=== PATIENT | male | born 1945 | race Caucasian/White ===

== ENCOUNTER 2024-09-10 00:49 | Inpatient (IN) | payer MEDICARE, SELFPAY ==
[2024-09-09 19:12] VITALS: BP 146/84
[2024-09-09 20:10] LABS: ALT (SGPT) 16 U/L (0-50); AST (SGOT) 32 U/L (17-59); Albumin 4.8 g/dl (3.5-5.0); Alkaline Phosphatase 100 U/L (38-126); Blood Urea Nitrogen 46 mg/dl (9-20); Calcium 13.6 mg/dl (8.4-10.2); Carbon Dioxide 25 mmol/L (22-30); Chloride 97 mmol/L (98-107); Glucose 95 mg/dl (70-99); Hematocrit 35.3 % (39.0-52.0); Hemoglobin 11.3 g/dL (13.0-18.0); Mean Corpuscular Hgb 22.8 pg (27.0-31.0); Mean Corpuscular Volume 71.3 fL (80.0-94.0); Platelet Count 181 10^3/uL (130-400); Potassium 4.2 mmol/L (3.5-5.1); Red Blood Cell Count 4.95 10^6/uL (4.70-6.10); Red Cell Dist. Width 24.7 % (11.5-14.5); Sodium 142 mmol/L (135-145); Total Bilirubin 0.4 mg/dl (0.2-1.3); Total Protein 9.3 g/dl (6.3-8.2); White Blood Cell Count 9.4 10^3/uL (4.8-10.8); eGFR 20.74
[2024-09-09 20:11] LABS: Absolute Neutrophils -Man Diff 5.1 10^3/uL (1.4-6.5); Anisocytosis 1+; Band Neutrophils 0 % (0-3); Lymphocytes 19 % (20-51); Monocytes 22 % (2-9); Myelocytes 3 % (-); Normal RBC Morphology No; Platelets Checked Yes; Segmented Neutrophils 55 % (42-75)
[2024-09-09 20:12] LABS: Macrocytosis 2+; Microcytosis 1+
[2024-09-09 20:13] LABS: Basophilic Stippling Slight
[2024-09-09 20:14] LABS: Poikilocytosis Slight; Total Cells Counted 100
[2024-09-09 21:39] VITALS: BP 135/71
[2024-09-09 22:00] VITALS: BP 153/79
--- NOTE | 2024-09-09 22:15 | ED.GENMED ---
History of Present Illness
General
Chief Complaint: Weakness
Source: patient and family
Exam Limitations: none
Time Seen by Provider: 09/09/24 21:57
Nursing documentation reviewed up to this point in time: agreed with
History of Present Illness
History of Present Illness:
This is 78-year-old male that presents to the emergency department with increased weakness, decreased appetite, and limited oral hydration. According to he typically walks with a walker. She states that today he was unable to walk at all. He
has had poor balance and weakness. She states that he is not consuming enough sustenance to survive. He has been confused. Patient has a complex medical history. He is followed by the [facility] in [facility]. They live in [place] [facility] which is in the [place]. They lived here much of their lives but then retired up there. 2 years ago patient fell and had 9 compression fractures and lost 5 inches of height due to the back compression fractures. He was
seen at [facility] by Dr. Sanchez and had several surgeries. He was determined to have osteoporosis so he started taking calcium. Soon they had to stop the calcium because his calcium levels were elevated. On April 17 of this year, he
had increased back pain so he went back to [facility] in [place]. He had a CAT scan and was admitted for a kidney stone which he attributed to the supplemental calcium intake. They also found that he had cholecystitis. During the
preop screening they found that he had a liver lesion. He went to [place] after his cholecystectomy and had robotic surgery to remove the lesion on his liver. Patient has been cancer free. He is due for a follow-up appointment with his
oncologist at [place] in September. In June he continued to have back pain so they determined that he had kidney stones so he had a lithotripsy and stents were placed. He was found to be lethargic so he went back to the hospital and of the
stents and replaced them with smaller stents after repeat lithotripsy. In the last few weeks the stents were removed. Patient was found to be dehydrated when they remove the stents and he was too weak to go home so they admitted him for a few
days. states that he was discharged recently and had enough strength to ambulate with a walker. Since his discharge, and his return home he has not been eating very much. states that his balance has been off. He has been in
intermittent back pain and had several falls. She does not feel that she could manage him at home at this time.
Review of Systems
Review of Systems
Allergies reviewed?: Yes
All Other Systems: ROS reviewed and negative except as documented in HPI and ROS
Constitutional: Reports fatigue
EENT: Reports no symptoms
Respiratory: Reports no symptoms
Cardiac: Reports no symptoms
ABD/GI: Reports no symptoms
: Reports no symptoms
Musculoskeletal: Reports back pain
Skin: Reports no symptoms
Neurological: Reports dizzy and weakness
Endocrine: Reports no symptoms
Hematologic/Lymphatic: Reports no symptoms
Psychiatric: Reports no symptoms
Phy Exam
General Physical Exam
General Presentation: mild distress
General age: appears stated age
General Skin: warm and dry
General Habitus: debilitated, elderly, failure to thrive and frail
General Mental: alert
Cardiovascular Exam
Cardiovascular Exam: regular rate/rhythm
Pulmonary Exam
Pulmonary Exam: lungs clear and no respiratory distress
Gastrointestinal Exam
Gastrointestinal Exam: normal bowel sounds, non tender, soft and non distended
Neurological Exam
Neurological Exam: alert and oriented x3
Musculoskeletal Exam
Musculoskeletal Exam: back tenderness and neuro vasc intact
Skin Exam
Skin Exam: normal color and warm/dry
Psychiatric Exam
Psychiatric Exam: normal mood/affect
Course
Orders/Labs/Results
Orders:
Orders
09/09/24 19:35
CMP [Comprehensive Metabolic Panel] Urgent
Complete Blood Count/With Diff Urgent
Manual Differential Urgent
09/09/24 22:23
CT Abd/pel Without Iv Or Oral Urgent
Comment:
Reason For Exam: flanbk pain, weakness
09/09/24 22:25
CT Head W/o Iv Contrast Urgent
Comment:
Reason For Exam: weakness
09/09/24 22:30
0.9% Sodium Chloride 1000 ml [Nss] 1,000 ml IV 250 mls/hr
09/09/24 23:33
Urinalysis Reflex To Culture Urgent
Date Specimen was Collected: 09/09/24
Time Specimen was Collected: 23:31
Urine Microscopic Reflex Cult Urgent
09/10/24 00:20
Admit/Transfer Patient As Directed
Co-Sign Provider:
Level of Care: Inpatient admission
Assign to:: Medical/Surgical
Physician / Group: Celestino
Diagnosis: SAKINA, Hypercalcemia
Reason for Hospitalization: SAKINA, Hypercalcemia
Expected length of stay greater than two midnights?: Yes
ELOS- Estimated Length of Stay in days: 3
I certify the patient meets the requirements for IP care: Yes
PRN Pain Medication Management As Directed
May give lesser potent ordered pain med per pt: Yes
preference::
Protocol:: Medication orders for pain may be administered in a
manner that supports deferring to patient preference
when the pt is:
- Requesting an ordered lesser potent pain medication.
Least to most potent pain medications are defined
as: acetaminophen < NSAID < tramadol < opioids
(morphine, oxycodone, hydromorphone).
- Requesting a lesser dose of the same medication IF
ORDERED.
- Requesting a less intrusive route of administration
if both routes are prescribed by the provider (PO <
IV).
09/10/24 00:21
Code Status As Directed
Resuscitation Status: Full Code
09/10/24 01:28
0.9% Sodium Chloride 1000 ml [Nss] 1,000 ml IV 120 mls/hr
HYDROmorphone [Dilaudid] 0.5 mg IV Q4HPRN PRN
Tramadol HCl [Ultram] 50 mg PO Q6HPRN PRN
09/10/24 01:28
Consult Notification Routine
Specialty to Notify: Nephrology
Date consulting provider notified: 09/10/24
Time consulting provider notified: 07:58
Notified:: Provider
Comment: Jennifer Cruz
NEPHROLOGY CONSULT Routine
Consulting Provider: Jennifer Cruz
Was physician already notified: No
Reason for consult: SAKINA, Hypercalcemia
Activity As Directed
Activity Level: Ambulate
With Assistance
Bladder Scan As Directed
Follow Bladder Retention/Intermittent Cath Algorithm?: Yes
PRN if no void in __ hours: 6
Frequency: Per Retention Algorithm
If Bladder Scan Result >: 400
then:: Straight cath
I/O [Intake/ Output] As Directed
Frequency: Per unit guidelines
Orthostatic Vital Signs As Directed
Orthostatic VS Frequency: BID
Pneumatic Compression Sleeves As Directed
Type: Knee high
Records Request [Obtain Records] As Directed
Dates of Information to be Released: Most Recent
Type of Information Requested: Entire Record
Obtain Records from: [facility] [place]
Straight Cath As Directed
Frequency: Per Retention Algorithm
Additional Instructions: straight cath as needed per acute urinary retention algorithm for 24 hrs
Additional Instructions: for bladder scan greater than 400 mL
Vital Signs As Directed
Frequency: Per unit guidelines
Weight As Directed
Frequency: Daily
Oxygen Therapy [O2 Therapy] [RESP] Routine
Titrate/Wean O2 to maintain O2 sat greater than (%): 94
Ot Eval And Treat Routine
PT Consult [Pt Eval And Treat] Routine
Activity Level: Ambulate
With Assistance
DX Deep Vein Thrombosis Video Routine
09/10/24 Breakfast
Regular
At Your Request: Limited Participation
Levothyroxine [Synthroid] 100 mcg PO DAILY@0600
09/10/24 06:27
Intact PTH Includes Calcium Routine
Magnesium IN AM
Phosphorus IN AM
TSH Reflex To Free T4 Routine
09/10/24 08:00
Acetaminophen [Tylenol] 1,000 mg PO TID
Docusate Sodium [Colace] 100 mg PO BID
Polyethylene Glycol Powder [Miralax] 17 grams PO DAILY
09/10/24 22:00
Sennosides [Senokot] 17.2 mg PO HS
Abnormal Lab Results
09/09/24 09/09/24
19:35 23:33
Hgb 11.3 L g/dL
(13.0-18.0)
Hct 35.3 L %
(39.0-52.0)
MCV 71.3 L fL
(80.0-94.0)
MCH 22.8 L pg
(27.0-31.0)
MCHC 32.0 L g/dL
(33.0-37.0)
RDW 24.7 H %
(11.5-14.5)
Lymphocytes (Manual) 19 L %
(20-51)
Monocytes (Manual) 22 H %
(2-9)
Chloride 97 L mmol/L
(98-107)
BUN 46 H mg/dl
(9-20)
Creatinine 3.0 H mg/dL
(0.7-1.3)
Calcium 13.6 H* mg/dl
(8.4-10.2)
Total Protein 9.3 H g/dl
(6.3-8.2)
Ur Occult Blood Reflex 4+ A
(Negative)
Urine RBC >100 A /HPF
(0-2)
Urine Bacteria (Reflex) Few A
(Negative)
09/09/24 19:35
09/09/24 19:35
Vital Signs
Initial and Last Documented VS:
Initial Vital Signs
Temp Pulse Resp BP Pulse Ox
98 F 84 24 146/84 97
09/09/24 19:12 09/09/24 19:12 09/09/24 19:12 09/09/24 19:12 09/09/24 19:12
Last Documented Vital Signs
Temp Pulse Resp BP Pulse Ox
97.5 F 73 16 136/67 96
09/11/24 15:33 09/11/24 15:33 09/11/24 15:33 09/11/24 15:33 09/11/24 15:33
*Critical Care Note
Total Time (30-74mins, 75-104mins- exclusive of procedures): Not Applicable
Update Note
Update Note:
CT head
IMPRESSION:
No acute intracranial findings.
Old lacunar infarct in the left basal ganglia. Senescent changes. Vascular calcifications.
CT A/P
IMPRESSION:
Mild to moderate right and borderline left hydroureteronephrosis without evidence of a detectable obstructing ureteral calculus. This may represent residual obstructive uropathy in the setting of a recently passed stone. However, there is also a
nodular soft tissue lesion within the left posterior aspect of the bladder measuring 1.2 cm (203:37), which is suspicious for bladder malignancy, and may also be associated with obstructive uropathy. Urology consultation and cystoscopy are
recommended for further assessment for bladder neoplasm.
Renal calculi also seen.
Multilevel age indeterminate compression fractures throughout the thoracolumbar spine, most pronounced at L1 where there is severe height loss. Consider MRI to evaluate for acuity.
Cirrhosis.
Additional findings: Colonic diverticulosis. Post cholecystectomy. Cluster of nonspecific calcifications along the gallbladder fossa, possibly from scarring. DJD. Gas focus in the bladder is likely from recent instrumentation. Diffuse
osteopenia. Moderate to large hiatal hernia. Vascular calcifications including coronary artery calcifications. Aortic annular calcification. Dependent atelectasis.
ED Attending Note
-
Portions of this chart may have been created with voice recognition software.� Occasional wrong word or��sound alike� substitutions may have occurred due to the inherent limitations of voice recognition software.
Discharge Plan
Departure
Patient Disposition: Admit
Date of Disposition: 09/10/24
Time of Disposition: 00:18
Admit to: Telemetry
Presentation/result/management discussed w/ accepting MD/DO: Hospitalist
Discharge Problem:
Weakness, Fall, Hypercalcemia, Renal failure
Interventions
Interventions:
*Risk Screen - Suicide Last Done: 09/09/24 19:12
*General Assessment Last Done: 09/09/24 22:46
*Neglect/Abuse Screening Last Done: 09/09/24 19:12
ED- Fall Risk Assessment Last Done: 09/10/24 01:27
*ED COVID-19 Vaccine History Last Done: 09/09/24 22:46
*Nursing Disposition Last Done: 09/10/24 01:27
ED- Cardiac Assessment Last Done: 09/09/24 21:47
ED- Neurological Assessment Last Done: 09/09/24 21:47
ED- Pulmonary Assessment Last Done: 09/09/24 21:47
Discharge Date and Time
Discharge Date/Time: 09/10/24 01:28
[2024-09-09] MEDS: NSS 1000 IV (22:52)
[2024-09-09 23:41] LABS: Urine Albumin Trace (Neg - Trace); Urine Bilirubin Negative (Negative); Urine Character Slightly Cloudy (Clear); Urine Color Yellow; Urine Glucose Negative (Negative); Urine Ketone Negative (Negative); Urine Leukocyte Negative (Negative); Urine Nitrite Negative (Negative); Urine Occult Blood 4+ (Negative); Urine Specific Gravity 1.025 (<1.030); Urine Urobilinogen Negative (Neg - 1+)
[2024-09-10] VITALS (7 sets, daily range): BP systolic 137–166; BP diastolic 63–76; PULSE 73–75; O2SAT 94; BMI 24.5
[2024-09-10 00:01] LABS: Urine Bacteria Few (Negative); Urine Granular Cast 0-2 /LPF (0); Urine Red Blood Cell >100 /HPF (0-2); Urine Sperm Seen; Urine Squamous Cell 0-2 /LPF (Few)
--- NOTE | 2024-09-10 00:33 | HPS.HSE ---
Family Physician
-
Family Physician: * NONE
Chief Complaint
-
Back Pain, Weakness
History of Present Illness
Patient is a 78y M with PMH significant for hepatocellular carcinoma, multiple vertebral compression fractures and kidney stones who presents to ED complaining of back pain, weakness and confusion. Patient has been a generally healthy individual
for much of his life. About 2 years ago he suffered a fall with multiple compression fractures and had a somewhat difficult recovery. He was again doing fairly well until March of this year when he developed significant increase in back pain. He
was hospitalized at [facility] and found to have massive kidney stone burden bilaterally. He underwent cysto, lithotripsies and bilateral stent placements.
During that same visit he was diagnosed with cholecystitis and also underwent cholecystectomy (April 20). During that procedure he was noted to have a lesion on the liver.
He followed this up at [facility] when here underwent robotic assisted resection of that liver lesion. Pathology was consistent with hepatocellular carcinoma. Additional evaluation including bone scan, PET, etc was unremarkable and
patient did not require supplemental chemo or XRT.
On 07/30/24, patient was again hospitalized at [facility] for back pain and kidney stones. He again underwent ureteroscopy / stent placement.
He has been significantly weak / fatigued / etc since that visit.
He was rehospitalized for 'dehydration' and his stents were exchanged during that stay.
He was most recently hospitalized at [facility] from 09/02 - 09/04 for weakness and dehydration. His ureteral stents were removed during that stay. He was discharged on Bactrim DS BID x 5 days for urinary infection.
He was discharged to home where his notes that he has been extremely weak, unable to ambulate and with very poor appetite. He has been constipated. He has episodic back pain that radiates around the upper abdomen. No new / recent fall,
injury or trauma.
also reports occasional confusion / disorientation.
They presented to the ED here at this evening for 'second opinion' given his lack of improvement after multiple hospitalizations elsewhere.
Medical History
Past Medical History
Past Medical History: Reports Other
Additional Past Medical History:
Multiple Vertebral Compression Fractures
Osteoporosis
Nephrolithiasis
Hepatocellular Carcinoma
Hypothyroidism
Past Surgical History: Reports Other
Additional Past Surgical History:
Multiple Cysto / Lithotripsies / Stents
Robotic-Assisted Hepatocellular Cancer Resection
Lap [place]
Social History
Tobacco: Non-smoker
Alcohol: Occasional
Drug: None
Personal:
Living: With Family
Family History
Family History: Not pertinent
Allergies / Home Medications
Allergies reflects when Allergies were last updated in [employer].
Home Medications with original date entered in [employer]
Allergy/Medication List:
Allergies
Allergy/AdvReac Type Severity Reaction Status Date / Time
No Known Allergies Allergy Verified 09/09/24 19:17
Home Medications
acetaminophen 500 mg tablet (Tylenol Extra Strength) 500 mg PO HSPRN PRN mild pain 09/09/24
celecoxib 200 mg capsule 200 mg PO HS 09/09/24
cholecalciferol (vitamin D3) 50 mcg (2,000 unit) tablet (Vitamin D3) 50 mcg PO DAILY 09/09/24
famotidine 20 mg tablet 20 mg PO DAILY 09/09/24
ferrous sulfate 137 mg (45 mg iron) tablet,extended release 137 mg PO DAILY 09/09/24
levothyroxine 100 mcg tablet (Synthroid) 100 mcg PO DAILY 09/09/24
tramadol 50 mg tablet 50 mg PO DAILYPRN PRN moderate pain 09/09/24
Review of Systems
-
History Source: Patient and Family
A 12 point ROS was completed and negative except as noted: Yes
Constitutional: Reports Weight Loss and Fatigue; Denies Fever or Chills
EENT: Denies Sore Throat
Respiratory: Denies Cough or Trouble Breathing
Cardiac: Denies Chest Pain or Palpitations
Abdomen/GI: Reports Abdominal Pain, Nausea, Constipated and Anorexia; Denies Vomiting, Diarrhea, Bloody Stools or Black Stools
: Reports Flank Pain; Denies Dysuria or Frequency
Musculoskeletal: Denies Joint Pain or Edema
Neurological: Denies Dizzy or Headache
Psych: Denies Depression or Anxiety
Physical Exam
Vital Signs
Vital Signs
Temp Pulse Resp BP Pulse Ox
98.5 F 63 16 152/76 97
09/10/24 00:11 09/10/24 00:00 09/10/24 00:00 09/10/24 00:00 09/10/24 00:00
Physical Exam
General: Other (78y M in no acute distress - paroxysms of pain in band-like fashion around upper abdomen / back.)
HEENT: Other (Dry MM. Neck supple.)
Respiratory: Clear; No Wheezes, Rales or Rhonchi
Cardiac: S1/S2 and Regular Rhythm; No Murmur
GI: Soft, Non Tender, Non Distended and Normal Bowel Sounds
Musculoskeletal: No Clubbing, No Cyanosis, No Edema and Other (Levoscoliosis. Pain with mobility / sitting upright in bed. No posterior tenderness over the spine.)
Neuro: AO x 3
Laboratory Results
-
09/09/24 19:35
09/09/24 19:35
Laboratory Results
Total Bilirubin 0.4 mg/dl (0.2-1.3) 09/09/24 19:35
AST 32 U/L (17-59) 09/09/24 19:35
ALT 16 U/L (0-50) 09/09/24 19:35
Alkaline Phosphatase 100 U/L (38-126) 09/09/24 19:35
Impression/Plan
-
A/P: Patient is a 78y M with PMH significant for osteoporosis, nephrolithiasis and hepatocellular carcinoma who presents to ED complaining of back pain, weakness and fatigue.
SAKINA
- Admit for further evaluation and treatment.
- SCr = 3 with no recent values for comparison. Will send to [facility] for recent labs.
- Suspect combination of hypovolemia, poor intake and Bactrim use (+/- chronic hypercalcemia - see below).
- Hold further Bactrim.
- Aggressive IVF support.
- Follow urine output, labs / lytes, etc for improvement.
- Nephrology evaluation for additional recommendations.
- CT done in the ED this evening with no evidence of acute obstruction, stone, etc.
- Check SPEP given anemia, hyperproteinemia, renal insufficiency, etc.
Hypercalcemia
- Significant hypercalcemia in a gentleman with multiple vertebral fractures, constipation, abdominal discomfort, recurrent / significant nephrolithiasis and intermittent confusion.
- ? hyperparathyroidism. Check iPTH.
- Note that patient was previously on PTH analog for treatment of his osteoporosis - stopped in June.
- Follow-up results. Hold calcium supplementation.
- Aggressive IVFs as noted above. Consider pamidronate or similar if no significant improvement in calcium levels.
- Consider 24 hour urine calcium testing after volume replacement.
Back Pain
Multiple Vertebral Fractures
- New / worsening back pain in radicular fashion.
- ? new or progressed compression fractures.
- CT done in the ED this evening shows significant loss of height at T12 especially.
- Efforts at pain control. PT / OT evaluations.
- If pain uncontrolled - consider MRI +/- IR evaluation for vertebroplasty, etc.
Nephrolithiasis
- Multiple recent episodes with significant described stone burden.
- Stone issues started after beginning PTH analog for osteoporosis / vertebral compression fractures.
- Now off of this medication.
- No new stones seen on CT scan.
- ? bladder mass lesion - which seems somewhat unlikely given multiple recent instrumentations / cystos.
- Follow-up with his Urologist at [facility] after discharge as already planned.
Hepatocellular Carcinoma
- s/p resection. No adjuvant therapies.
- Follow-up at [facility] as planned.
Hypothyroidism
- Stable. Continue current T4 supplementation.
- Update TFTs.
DVT Prophylaxis: SCDs
Code Status: Full
[2024-09-10] MEDS: NSS 1000 IV ×3 (01:54→17:34)
[2024-09-10] MEDS: NSS IV ×3 (02:08→15:01)
--- NOTE | 2024-09-10 02:49 | PTCARENOTE ---
Patient arrived to unit from [facility] via bed. Patient AAOx3, forgetful, able to make needs known. Oriented to unit. 2 IVF orders on JAN. TT FABRICE Almeida for clarification. NSS 150 mL/hr running. Encouraged to use call flanagan for assistance. Bed
alarm placed. Plan of care ongoing.
[2024-09-10] MEDS: SYNTHROID 100 MCG PO (05:28)
[2024-09-10 07:27] LABS: ALT (SGPT) 13 U/L (0-50); AST (SGOT) 25 U/L (17-59); Albumin 3.6 g/dl (3.5-5.0); Alkaline Phosphatase 72 U/L (38-126); Blood Urea Nitrogen 43 mg/dl (9-20); Calcium 12.3 mg/dl (8.4-10.2); Carbon Dioxide 23 mmol/L (22-30); Chloride 103 mmol/L (98-107); Direct Bilirubin 0.1 mg/dl (0.0-0.4); Estimated Creatinine Clearance 19 ml/min; Glucose 89 mg/dl (70-99); Magnesium 2.4 mg/dl (1.6-2.3); Phosphorus 3.8 mg/dl (2.5-4.5); Sodium 142 mmol/L (135-145); Total Bilirubin 0.3 mg/dl (0.2-1.3); Total Protein 7.3 g/dl (6.3-8.2); eGFR 24.63
[2024-09-10] MEDS: MIRALAX 17 GRAMS PO (07:48)
[2024-09-10] MEDS: COLACE 100 MG PO ×2 (07:48→22:04)
[2024-09-10] MEDS: TYLENOL 1000 MG PO ×3 (07:48→22:04)
[2024-09-10 08:06] LABS: Hematocrit 26.4 % (39.0-52.0); Hemoglobin 8.6 g/dL (13.0-18.0); Mean Corp Hgb Conc. 32.6 g/dL (33.0-37.0); Mean Corpuscular Hgb 23.1 pg (27.0-31.0); Mean Corpuscular Volume 70.8 fL (80.0-94.0); Platelet Count 149 10^3/uL (130-400); Red Blood Cell Count 3.73 10^6/uL (4.70-6.10); Red Cell Dist. Width 23.7 % (11.5-14.5); White Blood Cell Count 6.5 10^3/uL (4.8-10.8)
[2024-09-10 09:50] LABS: Intact PTH 9.8 pg/ml (13.6-85.8)
[2024-09-10] MEDS: DILAUDID 0.5 MG IV (11:52)
--- NOTE | 2024-09-10 12:01 | W.PN.HOSP.TC ---
Today's Communication/Plan
-
Monitor vital signs see plan
Monitor urine output
Urine studies
Nephrology evaluation
Monitor renal function
Requested records from [facility] to compare creatinine
DC Bactrim
Monitor hemoglobin
Nonbillable note
Assessment / Plan
Assessment / Plan
General: No acute distress
HEENT: Other (Dry MM. Neck supple.)
Respiratory: Clear; No Wheezes, Rales or Rhonchi
Cardiac: S1/S2 and Regular Rhythm; No Murmur
GI: Soft, Non Tender, Non Distended and Normal Bowel Sounds
Musculoskeletal: No Clubbing, No Cyanosis, No Edema and Other (Levoscoliosis. Pain with mobility / sitting upright in bed. No posterior tenderness over the spine.)
Neuro: AO x 3
SAKINA or SAKINA on CKD
per spouse no hx of CKD
- SCr = 3 with no recent values for comparison. Will send to [facility] for recent labs. Cr 2.6 today
- Suspect combination of hypovolemia, poor intake and Bactrim use (+/- chronic hypercalcemia - see below).
- Hold further Bactrim.
- Aggressive IVF support.
- Follow urine output, check urine lytes,eos
- Nephrology evaluation for additional recommendations.
- CT done in the ED this evening with no evidence of acute obstruction, stone, etc. per urology, no need for inpatient evaluation and recommended patient to follow-up outpatient
- Check SPEP given anemia, hyperproteinemia, renal insufficiency, etc.
Hypercalcemia
- Significant hypercalcemia in a gentleman with multiple vertebral fractures, constipation, abdominal discomfort, recurrent / significant nephrolithiasis and intermittent confusion.
- ? hyperparathyroidism. Check iPTH.
- Note that patient was previously on PTH analog for treatment of his osteoporosis - stopped in June.
- Follow-up results. Hold calcium supplementation.
- Aggressive IVFs as noted above. Consider pamidronate or similar if no significant improvement in calcium levels.
Back Pain
Multiple Vertebral Fractures
- New / worsening back pain in radicular fashion.
- ? new or progressed compression fractures.
- CT done in the ED this evening shows significant loss of height at T12 especially.
- Efforts at pain control. PT / OT evaluations.
- If pain uncontrolled - consider MRI +/- IR evaluation for vertebroplasty, etc.
Nephrolithiasis
- Multiple recent episodes with significant described stone burden.
- Stone issues started after beginning PTH analog for osteoporosis / vertebral compression fractures.
- Now off of this medication.
- No new stones seen on CT scan.
- ? bladder mass lesion - which seems somewhat unlikely given multiple recent instrumentations / cystos.
- Follow-up with his Urologist at [facility] after discharge as already planned.
Anemia, suspect anemia of chronic disease
Check iron panel, B12, folate
Continue to monitor
Some low hemoglobin is also secondary to hemodilution
Constipation
laxatives
enema
Hepatocellular Carcinoma
- s/p resection. No adjuvant therapies.
- Follow-up at [facility] as planned.
Hypothyroidism
- Stable. Continue current T4 supplementation.
- Update TFTs.
DVT Prophylaxis: SCDs
Code Status: Full
PT/OT
Anticipated Discharge: > 48 hours
Subjective/Interval History
-
Date of Service: September 10, 2024
denies pain
Objective Data
-
Labs:
Laboratory Results
09/10/24 09/10/24 09/10/24
06:27 06:27 07:28
WBC Cancelled 6.5
Hgb Cancelled 8.6 L D
Hct Cancelled 26.4 L
Plt Count Cancelled 149
Sodium 142
Potassium 4.0
Chloride 103
Carbon Dioxide 23
BUN 43 H
Creatinine 2.6 H
Glucose 89
Calcium TNP 12.3 H
Total Bilirubin 0.3
AST 25
ALT 13
Alkaline Phosphatase 72
Vital Signs:
Vital Signs
Temp Pulse Resp BP Pulse Ox
98.0 F 58 18 154/63 95
09/10/24 07:15 09/10/24 07:15 09/10/24 07:15 09/10/24 07:15 09/10/24 07:15
I&O
09/09/24 09/10/24 09/11/24
06:59 06:59 06:59
Output Total 300 / 300
Balance -300 / -300
--- NOTE | 2024-09-10 16:10 | W.CON.NEPH ---
Consultation
-
Date/Time Consultation Requested: 09/10/2024 7:00 AM
Date/Time Consultation Performed: 09/10/2024 4:00 PM
Requesting Provider: Dr. Garcia
Performing Provider: Dr. Barnes
Reason for Consultation: Acute kidney injury
Medical History
-
Chief Complaint: Acute kidney injury
History of Present Illness:
The patient is a 78-year-old male with PMH significant for hepatocellular carcinoma (status post robotic assisted hepatocellular cancer resection), multiple vertebral compression fractures and kidney stones who presents to ED complaining of back
pain, weakness and confusion. About 2 years ago he suffered a fall with multiple compression fractures and had a somewhat difficult recovery. He was again doing fairly well until March of this year when he developed significant increase in back
pain. He was hospitalized at [facility] and found to have massive kidney stone burden bilaterally. He underwent cysto, lithotripsies and bilateral stent placements.
During that same visit he was diagnosed with cholecystitis and also underwent cholecystectomy (April 20). During that procedure he was noted to have a lesion on the liver.
He followed this up at [facility] when here underwent robotic assisted resection of that liver lesion. Pathology was consistent with hepatocellular carcinoma. Additional evaluation including bone scan, PET, etc was unremarkable and
patient did not require supplemental chemo or XRT.
On 07/30/24, patient was again hospitalized at [facility] for back pain and kidney stones. He again underwent ureteroscopy / stent placement.
He has been significantly weak / fatigued / etc since that visit.
He was rehospitalized for 'dehydration' and his stents were exchanged during that stay.
He was most recently hospitalized at [facility] from 09/02 - 09/04 for weakness and dehydration. His ureteral stents were removed during that stay. He was discharged on Bactrim DS BID x 5 days for urinary infection.
He was discharged to home where his notes that he has been extremely weak, unable to ambulate and with very poor appetite. He has been constipated. He has episodic back pain that radiates around the upper abdomen. No new / recent fall,
injury or trauma.
also reports occasional confusion / disorientation.
They presented to the ED here at this evening for 'second opinion' given his lack of improvement after multiple hospitalizations elsewhere. On presentation his creatinine was 3 and nephrology was consulted.
Past Medical History
Multiple Vertebral Compression Fractures
Osteoporosis
Nephrolithiasis
Hepatocellular Carcinoma
Hypothyroidism
Social History
Tobacco: Non-Smoker
Alcohol: Occasional
Drug: None
Family History
no CKD
Family History: Not Pertinent
Allergies / Home Medications
Allergy/AdvReac Type Severity Reaction Status Date / Time
No Known Allergies Allergy Verified 09/09/24 19:17
�Medication �Instructions �Recorded �Confirmed �Type
acetaminophen 500 mg tablet 500 mg PO HSPRN PRN mild pain 09/09/24 09/09/24 History
(Tylenol Extra Strength)
celecoxib 200 mg capsule 200 mg PO HS Pain 09/09/24 09/09/24 History
cholecalciferol (vitamin D3) 50 50 mcg PO DAILY Supplement 09/09/24 09/09/24 History
mcg (2,000 unit) tablet (Vitamin
D3)
famotidine 20 mg tablet 20 mg PO DAILY Gastrointestinal 09/09/24 09/09/24 History
Issue
ferrous sulfate 137 mg (45 mg 137 mg PO DAILY Supplement 09/09/24 09/09/24 History
iron) tablet,extended release
levothyroxine 100 mcg tablet 100 mcg PO DAILY Thyroid 09/09/24 09/09/24 History
(Synthroid)
tramadol 50 mg tablet 50 mg PO DAILYPRN PRN moderate pain 09/09/24 09/09/24 History
Review of Systems
-
History Source: Patient
All other systems: Negative unless noted
Abdomen/GI: Abdominal Pain
Physical Exam
Vital Signs
Vital Signs
Temp Pulse Resp BP Pulse Ox
97.8 F 57 16 137/65 97
09/10/24 15:03 09/10/24 15:03 09/10/24 15:03 09/10/24 15:03 09/10/24 15:03
Lab Results
09/10/24 07:28
09/10/24 06:27
WBC 6.5 10^3/uL (4.8-10.8) 09/10/24 07:28
RBC 3.73 10^6/uL (4.70-6.10) L 09/10/24 07:28
Hgb 8.6 g/dL (13.0-18.0) L D 09/10/24 07:28
Hct 26.4 % (39.0-52.0) L 09/10/24 07:28
Plt Count 149 10^3/uL (130-400) 09/10/24 07:28
Sodium 142 mmol/L (135-145) 09/10/24 06:27
Potassium 4.0 mmol/L (3.5-5.1) 09/10/24 06:27
Chloride 103 mmol/L (98-107) 09/10/24 06:27
Carbon Dioxide 23 mmol/L (22-30) 09/10/24 06:27
BUN 43 mg/dl (9-20) H 09/10/24 06:27
Creatinine 2.6 mg/dL (0.7-1.3) H 09/10/24 06:27
eGFR 24.63 09/10/24 06:27
Glucose 89 mg/dl (70-99) 09/10/24 06:27
Calcium 12.3 mg/dl (8.4-10.2) H 09/10/24 06:27
Calcium TNP 09/10/24 06:27
Phosphorus 3.8 mg/dl (2.5-4.5) 09/10/24 06:27
Albumin 3.6 g/dl (3.5-5.0) 09/10/24 06:27
Physical Exam
General: AOx3, Nontoxic , NAD
HEENT: PERRL, EOMI, Anicteric, Conjunctivae Clear, Ear/Nose Intact, Hearing Normal, Oropharynx Clear/Moist, Dentition Intact, Facial Symmetry, Neck Supple, Neck: Trachea Midline, No JVD and No Thyromegaly, no Bruits
Respiratory: Clear to auscultation bilaterally with normal lung exersion
Cardiac: S1/S2 and Regular Rate/Rhythm
Breast: Deferred by me
Abdomen: Soft, Nontender, Nondistended, Normal Bowel Sounds and No Hepatosplenomegaly
Rectal: Deferred by Provider
Genito-urinary: No Costovertebral Tenderness
Extremities: No Clubbing, No Cyanosis and trace Edema
Skin: No Rash or open lesions
Neuro: Nonfocal/Grossly Intact, CN II-XII (Intact) and Strength (Musculoskeletal exam 5 out of 5 both upper and lower extremities)
Hematologic/Lymphatic: No Cervical Lymphadenopathy, No Submandibular Lymphadenopathy and No Supraclavicular Lymphadenopathy
Psych: Mood/afflect pleasant, Insight/judgement good and Appropriate
Vascular: plus 2 pedal and radial pulses
Data Reviewed
-
CT Scan: Report Reviewed by me (CT of abdomen and pelvis reviewed report: Mild right collecting system and right ureteral dilatation nonobstructing bilateral renal calculi small left-sided urinary bladder mass with associated left ureteral
dilatation and minimal left renal collection dilitation)
Labs: Labs Reviewed by me (Urinalysis 4+ blood trace, reviewed BMP CBC)
Old Records: Reviewed (Creatinine level from 06/26/2008 was 0.9 reviewed in old EMR )
Assessment/Plan
-
Impression:
SAKINA
Bilateral nephrolithiasis
History of hypothyroidism
Multiple vertebral compression fracture
Hypercalcemia
Anemia
History of hepatocellular carcinoma status post resection
Plan:
SAKINA:
-Unknown baseline and we will have to obtain records from [facility] to review for baseline labs and other history
-Hold NSAIDs
-suspect due to underlying obstruction vs recent treatment of UTI with bactrim, versus prerenal induced injury from hypercalcemia
-Microhematuria likely due to large stone burden and possible bladder mass
-Follow accurate I's and O's
Hypercalcemia:
- PTH- RP , SPEP ,HUNTER
-PTH appropriately suppressed at 9.8
-Maintain current IV fluids
-Will consider pamidronate if calcium levels do not decrease appreciable
[2024-09-10 18:52] LABS: Ferritin 88.4 ng/ml (17.9-464.0)
[2024-09-10 19:23] LABS: Folate 4.2 ng/ml (2.76-20); Vitamin B12 899 pg/ml (239-931)
[2024-09-10 19:29] LABS: Iron 39 ug/dl (49-181)
[2024-09-10 19:38] LABS: Percent Saturation 16 % (20-50); Total Iron Binding Capacity 240 ug/dl (261-462)
[2024-09-10 20:01] LABS: Urine Sodium 92 mmol/L (30-90)
[2024-09-10 20:39] LABS: Body Fluid for Eosinophils No Eosinophils seen
[2024-09-10] MEDS: SENOKOT 17.2 MG PO (22:05)
[2024-09-11] MEDS: NSS 1000 IV ×3 (03:22→15:16)
[2024-09-11 06:00] VITALS: BMI 24.4
[2024-09-11] MEDS: SYNTHROID 100 MCG PO (06:33)
[2024-09-11 07:55] VITALS: BP 175/76
[2024-09-11 08:39] LABS: Hematocrit 28.5 % (39.0-52.0); Hemoglobin 9.1 g/dL (13.0-18.0); Mean Corp Hgb Conc. 31.9 g/dL (33.0-37.0); Mean Corpuscular Hgb 22.9 pg (27.0-31.0); Mean Corpuscular Volume 71.8 fL (80.0-94.0); Platelet Count 144 10^3/uL (130-400); Red Blood Cell Count 3.97 10^6/uL (4.70-6.10); Red Cell Dist. Width 23.7 % (11.5-14.5); White Blood Cell Count 7.3 10^3/uL (4.8-10.8)
[2024-09-11 09:02] LABS: ALT (SGPT) 12 U/L (0-50); AST (SGOT) 23 U/L (17-59); Albumin 3.4 g/dl (3.5-5.0); Alkaline Phosphatase 84 U/L (38-126); Blood Urea Nitrogen 33 mg/dl (9-20); Carbon Dioxide 21 mmol/L (22-30); Chloride 108 mmol/L (98-107); Estimated Creatinine Clearance 22 ml/min; Glucose 82 mg/dl (70-99); Potassium 3.8 mmol/L (3.5-5.1); Sodium 142 mmol/L (135-145); Total Bilirubin 0.4 mg/dl (0.2-1.3); Total Protein 7.2 g/dl (6.3-8.2); eGFR 28.53
[2024-09-11 09:08] LABS: Absolute Neutrophils -Man Diff 3.4 10^3/uL (1.4-6.5); Anisocytosis 1+; Band Neutrophils 0 % (0-3); Lymphocytes 27 % (20-51); Monocytes 26 % (2-9); Normal RBC Morphology No; Platelets Checked Yes; Segmented Neutrophils 47 % (42-75)
[2024-09-11 09:09] LABS: Hypochromasia 1+; Polychromasia 1+; Total Cells Counted 100
[2024-09-11] MEDS: TYLENOL 1000 MG PO ×3 (09:14→20:19)
[2024-09-11] MEDS: MIRALAX 17 GRAMS PO (09:14)
[2024-09-11] MEDS: PEPCID 10 MG PO (09:15)
[2024-09-11] MEDS: COLACE 100 MG PO ×2 (09:15→20:20)
[2024-09-11] MEDS: APRESOLINE 5 MG IV (09:19)
[2024-09-11 11:25] VITALS: BP 136/77
--- NOTE | 2024-09-11 12:17 | W.PN.HOSP.TC ---
Today's Communication/Plan
-
Monitor vital signs see plan
PT/OT
Continue to monitor renal function, slowly improving, creatinine 2.3
Monitor calcium
Assessment / Plan
Assessment / Plan
General: No acute distress
HEENT: Other (Dry MM. Neck supple.)
Respiratory: Clear; No Wheezes, Rales or Rhonchi
Cardiac: S1/S2 and Regular Rhythm; No Murmur
GI: Soft, Non Tender, Non Distended and Normal Bowel Sounds
Musculoskeletal: No Clubbing, No Cyanosis, No Edema and Other (Levoscoliosis. Pain with mobility / sitting upright in bed. No posterior tenderness over the spine.)
Neuro: AO x 3
SAKINA or SAKINA on CKD
per spouse no hx of CKD
- SCr = 3 with no recent values for comparison. records requested [facility] for recent labs. Cr 2.3 today
- Suspect combination of hypovolemia, poor intake and Bactrim use (+/- chronic hypercalcemia - see below).
- Hold further Bactrim.
- Aggressive IVF support.
- Follow urine output
- Nephrology following
SPEP ordered on admission, pending
Hypercalcemia
- Significant hypercalcemia in a gentleman with multiple vertebral fractures, constipation, abdominal discomfort, recurrent / significant nephrolithiasis and intermittent confusion.
- ? hyperparathyroidism.
- Note that patient was previously on PTH analog for treatment of his osteoporosis - stopped in June.
- Follow-up results. Hold calcium supplementation.
- Aggressive IVFs as noted above. Consider pamidronate or similar if no significant improvement in calcium levels.
pthrp pending
Back Pain
Multiple Vertebral Fractures
- New / worsening back pain in radicular fashion.
- ? new or progressed compression fractures.
- CT done in the ED this evening shows significant loss of height at T12 especially.
- Efforts at pain control. PT / OT evaluations.
- If pain uncontrolled - consider MRI +/- IR evaluation for vertebroplasty, etc.
Nephrolithiasis
- Multiple recent episodes with significant described stone burden.
- Stone issues started after beginning PTH analog for osteoporosis / vertebral compression fractures.
- Now off of this medication.
- No new stones seen on CT scan.
- ? bladder mass lesion - which seems somewhat unlikely given multiple recent instrumentations / cystos.
- Follow-up with his Urologist at [facility] after discharge as already planned.
Anemia, suspect anemia of chronic disease
Check iron panel, B12, folate
Continue to monitor
Some low hemoglobin is also secondary to hemodilution
Constipation
laxatives
resolved
Hepatocellular Carcinoma
- s/p resection. No adjuvant therapies.
- Follow-up at [facility] as planned.
Hypothyroidism
- Stable. Continue current T4 supplementation.
DVT Prophylaxis: SCDs
Code Status: Full
PT/OT
I spent a total of 52 minutes with the patient or on the floor. More than 50% of this time involved counseling and coordination of care.
Anticipated Discharge: > 48 hours
Subjective/Interval History
-
Date of Service: September 11, 2024
denies nausea
Objective Data
-
Labs:
Laboratory Results
09/11/24
08:10
WBC 7.3
Hgb 9.1 L
Hct 28.5 L
Plt Count 144
Sodium 142
Potassium 3.8
Chloride 108 H
Carbon Dioxide 21 L
BUN 33 H
Creatinine 2.3 H
Glucose 82
Calcium 12.0 H
Total Bilirubin 0.4
AST 23
ALT 12
Alkaline Phosphatase 84
Vital Signs:
Vital Signs
Temp Pulse Resp BP Pulse Ox
98.2 F 80 15 136/77 96
09/11/24 07:55 09/11/24 11:25 09/11/24 07:55 09/11/24 11:25 09/11/24 07:55
I&O
09/10/24 09/11/24 09/12/24
06:59 06:59 06:59
Intake Total 240 / 240
Output Total 300 / 300 2300 / 2300
Balance -300 / -300 -2059 / -2059
--- NOTE | 2024-09-11 14:19 | W.PN.NEPH.PH ---
Today's Communication / Plan
-
Pamidronate to be provided at reduced rate 100cc/hr
Assessment/Plan
-
Impression:
SAKINA
Bilateral nephrolithiasis
History of hypothyroidism
Multiple vertebral compression fracture
Hypercalcemia
Anemia
History of hepatocellular carcinoma status post resection
Plan:
SAKINA:
-Unknown baseline and we will have to obtain records from [facility] to review for baseline labs and other history
-creatinine down to 2.3, remains grossly non oliguric ~ 2liters
-Hold NSAIDs, urine eosinophils negative
-suspect due to underlying obstruction vs recent treatment of UTI with bactrim, versus prerenal induced injury from hypercalcemia
-Microhematuria likely due to large stone burden and possible bladder mass
-Follow accurate I's and O's
Hypercalcemia:
-Calcium at 12, will provide pamidronate dosage today
- PTH- RP , SPEP
-PTH appropriately suppressed at 9.8
-Maintain current IV fluids
-Will consider pamidronate if calcium levels do not decrease appreciable
-
-
Date of Service: September 11, 2024
CC / HPI / ROS
-
Chief Complaint:
SAKINA
Hypercalcemia
History of Present Illness:
Calcium unchanged at 12
Creatinine down to 2.3
Hemodynamically stable
Review of Systems:
Nonoliguric
Labs
-
Labs:
WBC 7.3 10^3/uL (4.8-10.8) 09/11/24 08:10
RBC 3.97 10^6/uL (4.70-6.10) L 09/11/24 08:10
Hgb 9.1 g/dL (13.0-18.0) L 09/11/24 08:10
Hct 28.5 % (39.0-52.0) L 09/11/24 08:10
Plt Count 144 10^3/uL (130-400) 09/11/24 08:10
Sodium 142 mmol/L (135-145) 09/11/24 08:10
Potassium 3.8 mmol/L (3.5-5.1) 09/11/24 08:10
Chloride 108 mmol/L (98-107) H 09/11/24 08:10
Carbon Dioxide 21 mmol/L (22-30) L 09/11/24 08:10
BUN 33 mg/dl (9-20) H 09/11/24 08:10
Creatinine 2.3 mg/dL (0.7-1.3) H 09/11/24 08:10
eGFR 28.53 09/11/24 08:10
Glucose 82 mg/dl (70-99) 09/11/24 08:10
Calcium 12.0 mg/dl (8.4-10.2) H 09/11/24 08:10
Phosphorus 3.8 mg/dl (2.5-4.5) 09/10/24 06:27
Albumin 3.4 g/dl (3.5-5.0) L 09/11/24 08:10
Physical Exam
-
Vital Signs:
Vital Signs
Temp Pulse Resp BP Pulse Ox
98.2 F 80 15 136/77 96
09/11/24 07:55 09/11/24 11:25 09/11/24 07:55 09/11/24 11:25 09/11/24 07:55
Cardiovascular:: Regular rate and rhythm
Respiratory:: Bilateral: Coarse
Lung Excursion:: Normal
Abdomen:: Nontender
Bowel Sounds:: Decreased
Extremity Edema:: None: Bilateral:
Chatterjee Catheter: No
[2024-09-11] MEDS: AREDIA 270 MG IV (15:11)
[2024-09-11 15:33] VITALS: BP 136/67
[2024-09-11] MEDS: SENOKOT 17.2 MG PO (20:19)
[2024-09-11 23:35] VITALS: BP 162/70
[2024-09-12] MEDS: NSS 1000 IV ×2 (01:26→10:45)
[2024-09-12 06:00] VITALS: BMI 24.5
[2024-09-12] MEDS: SYNTHROID 100 MCG PO (06:19)
[2024-09-12 06:46] LABS: Hematocrit 27.5 % (39.0-52.0); Hemoglobin 9.1 g/dL (13.0-18.0); Mean Corp Hgb Conc. 33.1 g/dL (33.0-37.0); Mean Corpuscular Hgb 24.4 pg (27.0-31.0); Mean Corpuscular Volume 73.7 fL (80.0-94.0); Platelet Count 132 10^3/uL (130-400); Red Blood Cell Count 3.73 10^6/uL (4.70-6.10); Red Cell Dist. Width 23.6 % (11.5-14.5); White Blood Cell Count 5.3 10^3/uL (4.8-10.8)
[2024-09-12 07:25] LABS: Band Neutrophils 0 % (0-3); Lymphocytes 19 % (20-51)
[2024-09-12 07:26] LABS: Eosinophils 2 % (0-6); Metamyelocytes 2 % (-); Monocytes 19 % (2-9); Segmented Neutrophils 58 % (42-75)
[2024-09-12 07:27] LABS: Anisocytosis 1+; Hypochromasia 1+; Microcytosis 1+; Normal RBC Morphology No; Platelets Checked Yes
[2024-09-12 07:28] LABS: Total Cells Counted 100
[2024-09-12 07:50] LABS: ALT (SGPT) 12 U/L (0-50); AST (SGOT) 23 U/L (17-59); Albumin 3.1 g/dl (3.5-5.0); Alkaline Phosphatase 77 U/L (38-126); Blood Urea Nitrogen 28 mg/dl (9-20); Calcium 11.3 mg/dl (8.4-10.2); Carbon Dioxide 20 mmol/L (22-30); Chloride 111 mmol/L (98-107); Estimated Creatinine Clearance 24 ml/min; Glucose 83 mg/dl (70-99); Potassium 3.7 mmol/L (3.5-5.1); Sodium 144 mmol/L (135-145); Total Bilirubin 0.3 mg/dl (0.2-1.3); Total Protein 6.9 g/dl (6.3-8.2); eGFR 31.82
[2024-09-12 07:53] VITALS: BP 161/69
[2024-09-12] MEDS: MIRALAX 17 GRAMS PO (08:55)
[2024-09-12] MEDS: PEPCID 10 MG PO (08:55)
[2024-09-12] MEDS: COLACE 100 MG PO ×2 (08:56→21:05)
[2024-09-12] MEDS: TYLENOL 1000 MG PO ×3 (08:56→21:05)
--- NOTE | 2024-09-12 11:07 | PTCARENOTE ---
pt in the hallway yelling on phone about wanting to leave hospital. this nurse entered room and pt was OOb in chair after working with PT/OT this AM. pt stated that he was uncomfortable and wanted to get back in bed. this nurse and idania Wharton
repositioned pt in chair, he stated he was more comfortable and would stay in the chair for a little while longer. No bag of IVF hung for pt. pt entered the room agitated and began yelling at this nurse. Pt is very upset with care, she was
upset that pt was in pain while he was being given enema for fecal impaction a few days ago. She also stated that she was upset that PT did not work with pt yesterday 09/11. I reassured pt about PT and OT working with pt this AM. I talked to
both the pt and pt about pain management and notifying staff when pt has pain. HENRY Lao and community engagement leader Elise in the room during pt and pt encounter with this nurse. Pt placed back in bed by this nurse and mandy wharton at 1115 per pt request.
--- NOTE | 2024-09-12 11:51 | W.PN.HOSP.TC ---
Today's Communication/Plan
-
monitor vitals
see plan
still awaiting records
renal function slowly improving
On pamidronate
PT/OT
Assessment / Plan
Assessment / Plan
General: No acute distress
HEENT: Other (Dry MM. Neck supple.)
Respiratory: Clear; No Wheezes, Rales or Rhonchi
Cardiac: S1/S2 and Regular Rhythm; No Murmur
GI: Soft, Non Tender, Non Distended and Normal Bowel Sounds
Musculoskeletal: No Clubbing, No Cyanosis, No Edema and Other (Levoscoliosis. Pain with mobility / sitting upright in bed. No posterior tenderness over the spine.)
Neuro: AO x 3
SAKINA or SAKINA on CKD
per spouse no hx of CKD
- SCr = 3 with no recent values for comparison. records requested [facility] [place] for recent labs. Cr 2 today
- Suspect combination of hypovolemia, poor intake and Bactrim use (+/- chronic hypercalcemia - see below).
- Hold further Bactrim.
- Aggressive IVF support.
- Follow urine output
- Nephrology following
SPEP ordered on admission, pending
Hypercalcemia
- Significant hypercalcemia in a gentleman with multiple vertebral fractures, constipation, abdominal discomfort, recurrent / significant nephrolithiasis and intermittent confusion.
- ? hyperparathyroidism.
- Note that patient was previously on PTH analog for treatment of his osteoporosis - stopped in June.
- Follow-up results. Hold calcium supplementation.
- Aggressive IVFs as noted above. Consider pamidronate or similar if no significant improvement in calcium levels.
pthrp pending
Back Pain
Multiple Vertebral Fractures
- New / worsening back pain in radicular fashion.
- ? new or progressed compression fractures. no saddle anesthesia
- CT done in the ED shows significant loss of height at T12 especially.
- Efforts at pain control. PT / OT evaluations.
- If pain uncontrolled - consider MRI +/- IR evaluation for vertebroplasty, etc.
Nephrolithiasis
- Multiple recent episodes with significant described stone burden.
- Stone issues started after beginning PTH analog for osteoporosis / vertebral compression fractures.
- Now off of this medication.
- No new stones seen on CT scan.
- ? bladder mass lesion - which seems somewhat unlikely given multiple recent instrumentations / cystos.
- Follow-up with his Urologist at [facility] after discharge as already planned.
Anemia, suspect anemia of chronic disease
Continue to monitor
Some low hemoglobin is also secondary to hemodilution
Constipation
laxatives
resolved
Hepatocellular Carcinoma
- s/p resection. No adjuvant therapies.
- Follow-up at [facility] as planned.
Hypothyroidism
- Stable. Continue current T4 supplementation.
DVT Prophylaxis: SCDs,heparin
Code Status: Full
PT/OT
I spent a total of 52 minutes with the patient or on the floor. More than 50% of this time involved counseling and coordination of care.
Anticipated Discharge: > 48 hours
Subjective/Interval History
-
Date of Service: September 12, 2024
denies nausea
Objective Data
-
Labs:
Laboratory Results
09/12/24
06:25
WBC 5.3
Hgb 9.1 L
Hct 27.5 L
Plt Count 132
Sodium 144
Potassium 3.7
Chloride 111 H
Carbon Dioxide 20 L
BUN 28 H
Creatinine 2.1 H
Glucose 83
Calcium 11.3 H
Total Bilirubin 0.3
AST 23
ALT 12
Alkaline Phosphatase 77
Vital Signs:
Vital Signs
Temp Pulse Resp BP Pulse Ox
97.7 F 57 16 161/69 97
09/12/24 07:53 09/12/24 07:53 09/12/24 07:53 09/12/24 07:53 09/12/24 07:53
I&O
09/11/24 09/12/24 09/13/24
06:59 06:59 06:59
Intake Total 240 / 240 960 / 960
Output Total 2300 / 2300 2975 / 2975
Balance -2059 / -2059 -2014 /
--- NOTE | 2024-09-12 12:07 | CM ---
Received advisement that patient's wanted to see CM. Met with her and patient at bedside. Patient had a number of concerns which she expressed to patient's RN and [employer] [employer] Technologist. Patient's stated that patient lives with her in a two
story home with first floor set up. She described patient as independent (prior to this Summer as he had a few hospitalizations), however just had VN services upon discharge. Patient was able to ambulate with a cane and a walker. He was
independently able to bathe, take care of his personal care and dressing. Patient's was doing all the cooking, cleaning, laundry and washer machine. She drives and has been able to transport patient to his appointments and does all the
shopping.
Patient has had VN through [employer].
There is no DME besides the walker and cane that he uses to assist with his ambulation.
Patient has a prescription plan and uses, [facility] [place] for all of his medications.
His PCP is, not listed.
Patient's stated that she would like to have patient go to rehab, however, closer to her, near [place].
She was agreeable to referrals being sent to local facilities with better star ratings. Referrals were sent to [facility], [facility], and [facility].
Plan: Case management will continue to follow and assist with discharge planning. SNF when stable.
[2024-09-12 15:40] VITALS: BP 154/74
--- NOTE | 2024-09-12 16:35 | W.PN.NEPH.PH ---
Today's Communication / Plan
-
IVF continue
follow labs
Assessment/Plan
-
Impression:
SAKINA
Bilateral nephrolithiasis
History of hypothyroidism
Multiple vertebral compression fracture
Hypercalcemia
Anemia
History of hepatocellular carcinoma status post resection
Plan:
SAKINA:
-Unknown baseline and no records from [facility] to review for baseline labs and other history
-creatinine down to 2.1, remains grossly non oliguric ~ 2.9liters
-Hold NSAIDs, urine eosinophils negative
-suspect due to underlying obstruction vs recent treatment of UTI with bactrim, versus prerenal induced injury from hypercalcemia
-Microhematuria likely due to large stone burden and possible bladder mass
-Follow accurate I's and O's
Hypercalcemia:
-Calcium at 11.3 better, s/p pamidronate 09/11
- PTH- RP , SPEP pending
-PTH appropriately suppressed at 9.8
-Maintain current IV fluids for another day -lower rate to 100cc/hr
BP are mildly high-not on meds before-monitor for now
d/w pt and family at bedside
-
-
Date of Service: September 12, 2024
CC / HPI / ROS
-
Chief Complaint:
SAKINA
Hypercalcemia
History of Present Illness:
Calcium better at 11.3
Creatinine down to 2.1
Hemodynamically stable
Review of Systems:
Nonoliguric
c/o back pain as before
no cp or sob
Labs
-
Labs:
WBC 5.3 10^3/uL (4.8-10.8) 09/12/24 06:25
RBC 3.73 10^6/uL (4.70-6.10) L 09/12/24 06:25
Hgb 9.1 g/dL (13.0-18.0) L 09/12/24 06:25
Hct 27.5 % (39.0-52.0) L 09/12/24 06:25
Plt Count 132 10^3/uL (130-400) 09/12/24 06:25
Sodium 144 mmol/L (135-145) 09/12/24 06:25
Potassium 3.7 mmol/L (3.5-5.1) 09/12/24 06:25
Chloride 111 mmol/L (98-107) H 09/12/24 06:25
Carbon Dioxide 20 mmol/L (22-30) L 09/12/24 06:25
BUN 28 mg/dl (9-20) H 09/12/24 06:25
Creatinine 2.1 mg/dL (0.7-1.3) H 09/12/24 06:25
eGFR 31.82 09/12/24 06:25
Glucose 83 mg/dl (70-99) 09/12/24 06:25
Calcium 11.3 mg/dl (8.4-10.2) H 09/12/24 06:25
Phosphorus 3.8 mg/dl (2.5-4.5) 09/10/24 06:27
Albumin 3.1 g/dl (3.5-5.0) L 09/12/24 06:25
Physical Exam
-
Vital Signs:
Vital Signs
Temp Pulse Resp BP Pulse Ox
97.5 F 75 16 154/74 98
09/12/24 15:40 09/12/24 15:40 09/12/24 15:40 09/12/24 15:40 09/12/24 15:40
Cardiovascular:: Regular rate and rhythm
Respiratory:: Bilateral: CTA
Lung Excursion:: Normal
Abdomen:: Nontender and Soft
Extremity Edema:: None: Bilateral:
Chatterjee Catheter: No
--- NOTE | 2024-09-12 16:51 | PTCARENOTE ---
pt urologist information. Db Iyer, [facility] [phone]
[2024-09-12] MEDS: HEPARIN 5000 UNITS SC (21:03)
[2024-09-12] MEDS: SENOKOT 17.2 MG PO (21:05)
[2024-09-12 23:00] VITALS: BP 165/77
[2024-09-13 00:58] LABS: Transferrin 168 mg/dL (200-360)
[2024-09-13 05:52] VITALS: BMI 23.1
[2024-09-13] MEDS: SYNTHROID 100 MCG PO (06:36)
[2024-09-13 07:10] LABS: Hematocrit 30.3 % (39.0-52.0); Hemoglobin 9.9 g/dL (13.0-18.0); Mean Corp Hgb Conc. 32.7 g/dL (33.0-37.0); Mean Corpuscular Hgb 23.3 pg (27.0-31.0); Mean Corpuscular Volume 71.5 fL (80.0-94.0); Platelet Count 128 10^3/uL (130-400); Red Blood Cell Count 4.24 10^6/uL (4.70-6.10)
[2024-09-13 07:26] LABS: ALT (SGPT) 14 U/L (0-50); AST (SGOT) 29 U/L (17-59); Albumin 3.5 g/dl (3.5-5.0); Alkaline Phosphatase 94 U/L (38-126); Blood Urea Nitrogen 25 mg/dl (9-20); Calcium 11.3 mg/dl (8.4-10.2); Carbon Dioxide 22 mmol/L (22-30); Chloride 109 mmol/L (98-107); Estimated Creatinine Clearance 25 ml/min; Glucose 90 mg/dl (70-99); Potassium 3.5 mmol/L (3.5-5.1); Sodium 145 mmol/L (135-145); Total Bilirubin 0.4 mg/dl (0.2-1.3); Total Protein 7.5 g/dl (6.3-8.2); eGFR 33.74
[2024-09-13 07:38] VITALS: BP 157/84
[2024-09-13 07:58] LABS: % Basophils 1.2 % (0-2); % Eosinophils 0.4 % (0-6); % Immature Granulocytes 5.7 % (0-0.5); % Lymphocytes 15.4 % (20.5-51.1); % Monocytes 31.7 % (1.7-9.3); % Neutrophils 45.6 % (42.2-75.2); Absolute Basophils 0.1 10^3/uL (0-0.2); Absolute Immature Granulocytes 0.3 10^3/uL (0-0.05); Absolute Lymphocytes 0.8 10^3/uL (1.2-3.4); Absolute Monocytes 1.6 10^3/uL (0.1-0.6); Absolute Neutrophils 2.3 10^3/uL (1.4-6.5); Nucleated Red Blood Cells % 0 % (-)
[2024-09-13] MEDS: MIRALAX 17 GRAMS PO (08:57)
[2024-09-13] MEDS: COLACE 100 MG PO ×2 (08:58→21:13)
[2024-09-13] MEDS: HEPARIN 5000 UNITS SC ×2 (08:58→21:12)
[2024-09-13] MEDS: PEPCID 10 MG PO (08:58)
[2024-09-13] MEDS: TYLENOL 1000 MG PO ×3 (08:58→21:13)
[2024-09-13 09:07] LABS: Absolute Neutrophils -Man Diff 2.4 10^3/uL (1.4-6.5); Band Neutrophils 2 % (0-3); Lymphocytes 22 % (20-51); Segmented Neutrophils 47 % (42-75)
[2024-09-13 09:08] LABS: Eosinophils 1 % (0-6); Metamyelocytes 2 % (-); Monocytes 21 % (2-9); Myelocytes 4 % (-)
[2024-09-13 09:09] LABS: Microcytosis Slight; Normal RBC Morphology No; Platelets Checked YES
[2024-09-13 09:10] LABS: Hypochromasia Slight; Target Cells FEW; Total Cells Counted 100
--- NOTE | 2024-09-13 11:38 | W.PN.HOSP.TC ---
Today's Communication/Plan
-
Monitor vital signs
see plan
Discussed in length with patient's daughter and spouse at bedside. They will try to get online portal to look at lab values from [facility].
Monitor renal function closely, monitor urine output
Monitor calcium
Nephrology to see today
PT/OT
spep pending
Assessment / Plan
Assessment / Plan
General: No acute distress
HEENT: Other (Dry MM. Neck supple.)
Respiratory: Clear; No Wheezes, Rales or Rhonchi
Cardiac: S1/S2 and Regular Rhythm; No Murmur
GI: Soft, Non Tender, Non Distended and Normal Bowel Sounds
Musculoskeletal: No Clubbing, No Cyanosis, No Edema and Other (Levoscoliosis. Pain with mobility / sitting upright in bed. No posterior tenderness over the spine.)
Neuro: AO x 3
SAKINA or SAKINA on CKD
per spouse no hx of CKD
- SCr = 3 with no recent values for comparison. records requested [facility] for recent labs. Cr 2 today. family is trying to get portal so they can see results; they also thinking if patient needs to be transferred and will let us know if
they want us to contact [facility] as patient family request
- Suspect combination of hypovolemia, poor intake and Bactrim use (+/- chronic hypercalcemia - see below).
- Hold further Bactrim.
- Aggressive IVF support.
- Follow urine output
- Nephrology following
SPEP ordered on admission, pending
Hypercalcemia
- Significant hypercalcemia in a gentleman with multiple vertebral fractures, constipation, abdominal discomfort, recurrent / significant nephrolithiasis and intermittent confusion.
- ? hyperparathyroidism.
- Note that patient was previously on PTH analog for treatment of his osteoporosis - stopped in June.
- Follow-up results. Hold calcium supplementation.
- Aggressive IVFs as noted above. Consider pamidronate or similar if no significant improvement in calcium levels.
pthrp pending
Back Pain
Multiple Vertebral Fractures
- New / worsening back pain in radicular fashion.
- ? new or progressed compression fractures. no saddle anesthesia
- CT done in the ED shows significant loss of height at T12 especially.
- Efforts at pain control. PT / OT evaluations.
- If pain uncontrolled - consider MRI +/- IR evaluation for vertebroplasty, etc. currently patient reporting he is feeling better
Nephrolithiasis
- Multiple recent episodes with significant described stone burden.
- Stone issues started after beginning PTH analog for osteoporosis / vertebral compression fractures.
- Now off of this medication.
- No new stones seen on CT scan.
- ? bladder mass lesion - which seems somewhat unlikely given multiple recent instrumentations / cystos.
- Follow-up with his Urologist at [facility] after discharge as already planned.
Anemia, suspect anemia of chronic disease
Continue to monitor
Some low hemoglobin is also secondary to hemodilution
Constipation
laxatives
resolved
Hepatocellular Carcinoma
- s/p resection. No adjuvant therapies.
- Follow-up at [facility] as planned.
Hypothyroidism
- Stable. Continue current T4 supplementation.
DVT Prophylaxis: SCDs,heparin
Code Status: Full
PT/OT
I spent a total of 51 minutes with the patient or on the floor. More than 50% of this time involved counseling and coordination of care.
Anticipated Discharge: > 48 hours
Subjective/Interval History
-
Date of Service: September 13, 2024
denies pain
Objective Data
-
Labs:
Laboratory Results
09/13/24
06:30
WBC 5.0
Hgb 9.9 L
Hct 30.3 L
Plt Count 128 L
Sodium 145
Potassium 3.5
Chloride 109 H
Carbon Dioxide 22
BUN 25 H
Creatinine 2.0 H
Glucose 90
Calcium 11.3 H
Total Bilirubin 0.4
AST 29
ALT 14
Alkaline Phosphatase 94
Vital Signs:
Vital Signs
Temp Pulse Resp BP Pulse Ox
98.6 F 86 16 157/84 97
09/13/24 07:38 09/13/24 07:38 09/13/24 07:38 09/13/24 07:38 09/13/24 07:38
I&O
09/12/24 09/13/24 09/14/24
06:59 06:59 06:59
Intake Total 960 / 960 480 / 480
Output Total 2975 / 2975 3150 / 3150
Balance -2014 / -2014 / -2669
--- NOTE | 2024-09-13 12:23 | W.PN.NEPH.PH ---
Today's Communication / Plan
-
IVF, add amlodipine
Assessment/Plan
-
Impression:
SAKINA
Bilateral nephrolithiasis
History of hypothyroidism
Multiple vertebral compression fracture
Hypercalcemia
Anemia
History of hepatocellular carcinoma status post resection
Plan:
SAKINA:
-Unknown baseline and no records from [facility] to review for baseline labs and other history
-creatinine down to 2., remains grossly non oliguric ~ 3liters
-Hold NSAIDs, urine eosinophils negative
-suspect due to underlying obstruction vs recent treatment of UTI with bactrim, versus prerenal induced injury from hypercalcemia
-Microhematuria likely due to large stone burden and possible bladder mass
-Follow accurate I's and O's
Hypercalcemia:
-Calcium no change at 11.3, s/p pamidronate 09/11
- PTH- RP , SPEP pending
-PTH appropriately suppressed at 9.8
-juancarlos give IVF today
BP are mildly high-not on meds before-will add amlodipine
d/w pt
-
-
Date of Service: September 13, 2024
CC / HPI / ROS
-
Chief Complaint:
SAKINA
Hypercalcemia
History of Present Illness:
Calcium no change at 11.3
Creatinine down to 2.
Hemodynamically stable
Review of Systems:
Nonoliguric
c/o back pain as before
no cp or sob
loose BMs
Labs
-
Labs:
WBC 5.0 10^3/uL (4.8-10.8) 09/13/24 06:30
RBC 4.24 10^6/uL (4.70-6.10) L 09/13/24 06:30
Hgb 9.9 g/dL (13.0-18.0) L 09/13/24 06:30
Hct 30.3 % (39.0-52.0) L 09/13/24 06:30
Plt Count 128 10^3/uL (130-400) L 09/13/24 06:30
Sodium 145 mmol/L (135-145) 09/13/24 06:30
Potassium 3.5 mmol/L (3.5-5.1) 09/13/24 06:30
Chloride 109 mmol/L (98-107) H 09/13/24 06:30
Carbon Dioxide 22 mmol/L (22-30) 09/13/24 06:30
BUN 25 mg/dl (9-20) H 09/13/24 06:30
Creatinine 2.0 mg/dL (0.7-1.3) H 09/13/24 06:30
eGFR 33.74 09/13/24 06:30
Glucose 90 mg/dl (70-99) 09/13/24 06:30
Calcium 11.3 mg/dl (8.4-10.2) H 09/13/24 06:30
Phosphorus 3.8 mg/dl (2.5-4.5) 09/10/24 06:27
Albumin 3.5 g/dl (3.5-5.0) 09/13/24 06:30
Physical Exam
-
Vital Signs:
Vital Signs
Temp Pulse Resp BP Pulse Ox
98.6 F 86 16 157/84 97
09/13/24 07:38 09/13/24 07:38 09/13/24 07:38 09/13/24 07:38 09/13/24 07:38
Cardiovascular:: Regular rate and rhythm
Respiratory:: Bilateral: CTA
Lung Excursion:: Normal
Abdomen:: Nontender and Soft
Extremity Edema:: None: Bilateral:
Chatterjee Catheter: No
[2024-09-13] MEDS: NORVASC 2.5 MG PO (14:19)
[2024-09-13] MEDS: NSS 1000 IV (14:20)
[2024-09-13 15:30] VITALS: BP 162/81
[2024-09-13 17:40] VITALS: BP 154/76
[2024-09-13] MEDS: SENOKOT 17.2 MG PO (21:13)
[2024-09-14] MEDS: NSS 1000 IV ×3 (00:33→17:32)
[2024-09-14 06:00] VITALS: BMI 23.3
[2024-09-14] MEDS: SYNTHROID 100 MCG PO (06:35)
[2024-09-14 07:35] VITALS: BP 136/82
[2024-09-14] MEDS: NORVASC 2.5 MG PO (08:29)
[2024-09-14] MEDS: TYLENOL 1000 MG PO ×2 (08:29→21:08)
[2024-09-14] MEDS: COLACE 100 MG PO ×2 (08:29→21:01)
[2024-09-14] MEDS: PEPCID 10 MG PO (08:29)
[2024-09-14] MEDS: MIRALAX 17 GRAMS PO (08:30)
[2024-09-14] MEDS: HEPARIN 5000 UNITS SC ×2 (08:30→21:01)
[2024-09-14 08:43] LABS: Hematocrit 29.2 % (39.0-52.0); Hemoglobin 9.4 g/dL (13.0-18.0); Mean Corp Hgb Conc. 32.2 g/dL (33.0-37.0); Mean Corpuscular Hgb 23.2 pg (27.0-31.0); Mean Corpuscular Volume 71.9 fL (80.0-94.0); Platelet Count 106 10^3/uL (130-400); Red Blood Cell Count 4.06 10^6/uL (4.70-6.10); Red Cell Dist. Width 24.1 % (11.5-14.5); White Blood Cell Count 4.7 10^3/uL (4.8-10.8)
[2024-09-14 08:50] LABS: ALT (SGPT) 13 U/L (0-50); AST (SGOT) 25 U/L (17-59); Albumin 3.3 g/dl (3.5-5.0); Alkaline Phosphatase 93 U/L (38-126); Blood Urea Nitrogen 22 mg/dl (9-20); Calcium 9.9 mg/dl (8.4-10.2); Carbon Dioxide 21 mmol/L (22-30); Chloride 109 mmol/L (98-107); Estimated Creatinine Clearance 26 ml/min; Glucose 84 mg/dl (70-99); Potassium 3.5 mmol/L (3.5-5.1); Sodium 144 mmol/L (135-145); Total Bilirubin 0.3 mg/dl (0.2-1.3); Total Protein 7.3 g/dl (6.3-8.2); eGFR 35.88
[2024-09-14 09:18] LABS: Absolute Neutrophils -Man Diff 2.2 10^3/uL (1.4-6.5); Band Neutrophils 1 % (0-3); Lymphocytes 34 % (20-51); Monocytes 18 % (2-9); Myelocytes 1 % (-); Normal RBC Morphology No; Platelets Checked Yes; Segmented Neutrophils 46 % (42-75)
[2024-09-14 09:19] LABS: Anisocytosis Slight; Hypochromasia Slight; Microcytosis 1+; Polychromasia Slight; Total Cells Counted 100
[2024-09-14 10:46] LABS: Albumin 3.07 g/dL (3.75-5.01); Alpha 1 Globulin 0.22 g/dL (0.19-0.46); Alpha 2 Globulin 0.63 g/dL (0.48-1.05); Monoclonal Protein 2.37 g/dL (<=0.00); SPEP IFE Reflex IFE Done; Total Protein-Electrophoresis 7.1 g/dL (6.3-8.2)
--- NOTE | 2024-09-14 10:55 | W.PN.HOSP.TC ---
Today's Communication/Plan
-
Monitor vital signs see plan
PT/OT
Continue to monitor renal function
Nephrology following
Assessment / Plan
Assessment / Plan
General: No acute distress
HEENT: Other (Dry MM. Neck supple.)
Respiratory: Clear; No Wheezes, Rales or Rhonchi
Cardiac: S1/S2 and Regular Rhythm; No Murmur
GI: Soft, Non Tender, Non Distended and Normal Bowel Sounds
Musculoskeletal: No Clubbing, No Cyanosis, No Edema and Other (Levoscoliosis. No posterior tenderness over the spine.)
Neuro: AO x 3
SAKINA or SAKINA on CKD
per spouse no hx of CKD
- SCr = 3 with no recent values for comparison. records requested [facility] for recent labs. Cr 1.9 today. family is trying to get portal so they can see results
- Suspect combination of hypovolemia, poor intake and Bactrim use (+/- chronic hypercalcemia - see below).
- Hold further Bactrim.
- Aggressive IVF support.
- Follow urine output
- Nephrology following
SPEP ordered on admission, pending
Hypercalcemia
- Significant hypercalcemia in a gentleman with multiple vertebral fractures, constipation, abdominal discomfort, recurrent / significant nephrolithiasis and intermittent confusion.
- ? hyperparathyroidism.
- Note that patient was previously on PTH analog for treatment of his osteoporosis - stopped in June.
- Follow-up results. Hold calcium supplementation.
- Aggressive IVFs as noted above. s/p pamidronate. now improving
pthrp pending
Back Pain
Multiple Vertebral Fractures
- New / worsening back pain in radicular fashion.
- ? new or progressed compression fractures. no saddle anesthesia
- CT done in the ED shows significant loss of height at T12 especially.
- Efforts at pain control. PT / OT evaluations.
- If pain uncontrolled - consider MRI +/- IR evaluation for vertebroplasty, etc. currently patient reporting he is feeling better
Nephrolithiasis
- Multiple recent episodes with significant described stone burden.
- Stone issues started after beginning PTH analog for osteoporosis / vertebral compression fractures.
- Now off of this medication.
- No new stones seen on CT scan.
- ? bladder mass lesion - which seems somewhat unlikely given multiple recent instrumentations / cystos.
- Follow-up with his Urologist at [facility] after discharge as already planned.
Anemia, suspect anemia of chronic disease
Continue to monitor
Some low hemoglobin is also secondary to hemodilution
Constipation
laxatives
resolved
Hepatocellular Carcinoma
- s/p resection. No adjuvant therapies.
- Follow-up at [facility] as planned.
Hypothyroidism
- Stable. Continue current T4 supplementation.
DVT Prophylaxis: SCDs,heparin
Code Status: Full
PT/OT
I spent a total of 52 minutes with the patient or on the floor. More than 50% of this time involved counseling and coordination of care.
Anticipated Discharge: 24 - 48 hours
Subjective/Interval History
-
Date of Service: September 14, 2024
denies nausea
Objective Data
-
Labs:
Laboratory Results
09/14/24
07:13
WBC 4.7 L
Hgb 9.4 L
Hct 29.2 L
Plt Count 106 L
Sodium 144
Potassium 3.5
Chloride 109 H
Carbon Dioxide 21 L
BUN 22 H
Creatinine 1.9 H
Glucose 84
Calcium 9.9
Total Bilirubin 0.3
AST 25
ALT 13
Alkaline Phosphatase 93
Vital Signs:
Vital Signs
Temp Pulse Resp BP Pulse Ox
98.4 F 74 14 136/82 96
09/14/24 07:35 09/14/24 07:35 09/14/24 07:35 09/14/24 07:35 09/14/24 07:35
I&O
09/13/24 09/14/24 09/15/24
06:59 06:59 06:59
Intake Total 480 / 480 1620 / 1620
Output Total 3150 / 3150 1600 / 1600
Balance -2670 / -2670
--- NOTE | 2024-09-14 12:38 | W.PN.NEPH.PH ---
Addendum entered and electronically signed by Jennifer Cruz MD 09/14/24 12:43:
SPEP shows Amery M protein, UPEP with EDD and serum FLC ordered
consider heme consult, pt lives out of the area
Original Note:
Today's Communication / Plan
-
follow labs
wean off IVF
Assessment/Plan
-
Impression:
SAKINA
Bilateral nephrolithiasis
History of hypothyroidism
Multiple vertebral compression fracture
Hypercalcemia
Anemia
History of hepatocellular carcinoma status post resection
Plan:
SAKINA:
-Unknown baseline and no records from [facility] to review for baseline labs and other history
-creatinine down to 1.9., remains grossly non oliguric
-Hold NSAIDs, urine eosinophils negative
-suspect due to underlying obstruction vs recent treatment of UTI with bactrim, versus prerenal induced injury from hypercalcemia
-Microhematuria likely due to large stone burden and possible bladder mass
-Follow accurate I's and O's
Hypercalcemia:
-Calcium better at 9.9, s/p pamidronate 09/11 and IVF
- PTH- RP , SPEP pending
-PTH appropriately suppressed at 9.8
wean off IVF today
BP are mildly high-started amlodipine 09/13
d/w pt
-
-
Date of Service: September 14, 2024
CC / HPI / ROS
-
Chief Complaint:
SAKINA
Hypercalcemia
History of Present Illness:
Calcium better at 9.9
Creatinine down to 1.9.
Hemodynamically stable
Review of Systems:
Nonoliguric
c/o back pain as before
no cp or sob
Labs
-
Labs:
WBC 4.7 10^3/uL (4.8-10.8) L 10/27/24 07:13
RBC 4.06 10^6/uL (4.70-6.10) L 09/14/24 07:13
Hgb 9.4 g/dL (13.0-18.0) L 09/14/24 07:13
Hct 29.2 % (39.0-52.0) L 09/14/24 07:13
Plt Count 106 10^3/uL (130-400) L 09/14/24 07:13
Sodium 144 mmol/L (135-145) 09/14/24 07:13
Potassium 3.5 mmol/L (3.5-5.1) 09/14/24 07:13
Chloride 109 mmol/L (98-107) H 09/14/24 07:13
Carbon Dioxide 21 mmol/L (22-30) L 09/14/24 07:13
BUN 22 mg/dl (9-20) H 09/14/24 07:13
Creatinine 1.9 mg/dL (0.7-1.3) H 09/14/24 07:13
eGFR 35.88 09/14/24 07:13
Glucose 84 mg/dl (70-99) 09/14/24 07:13
Calcium 9.9 mg/dl (8.4-10.2) 09/14/24 07:13
Phosphorus 3.8 mg/dl (2.5-4.5) 09/10/24 06:27
Albumin 3.3 g/dl (3.5-5.0) L 09/14/24 07:13
Physical Exam
-
Vital Signs:
Vital Signs
Temp Pulse Resp BP Pulse Ox
98.4 F 74 14 136/82 96
09/14/24 07:35 09/14/24 07:35 09/14/24 07:35 09/14/24 07:35 09/14/24 07:35
Cardiovascular:: Regular rate and rhythm
Respiratory:: Bilateral: CTA
Lung Excursion:: Normal
Abdomen:: Nontender and Soft
Extremity Edema:: None: Bilateral:
Chatterjee Catheter: No
[2024-09-14] MEDS: TYLENOL PO (15:46)
[2024-09-14 15:50] VITALS: BP 143/82
--- NOTE | 2024-09-14 16:58 | CM ---
Spoke with pt and Sis . As per [facility] only [facility] .
Sis said no she wants [facility] on [address] [place].
Will need to check Mon on availability . PAC data for their area printed out Given to pt.
CM will need to check if ambulance will be covered out of 25 mile radius with Medicare Sunday.
PLAN To locate SNF near his home.
[2024-09-14] MEDS: SENOKOT 17.2 MG PO (21:09)
[2024-09-14 23:55] VITALS: BP 153/83
[2024-09-15] MEDS: RISPERDAL M-TAB (ORALLY DISINTEGRATING) 0.5 MG PO (03:32)
[2024-09-15 04:41] VITALS: BMI 23.6
[2024-09-15] MEDS: SYNTHROID 100 MCG PO (06:40)
[2024-09-15 07:07] VITALS: BP 143/85
[2024-09-15 07:11] LABS: IgA 2076 mg/dL (68-408); IgG 678 mg/dL (768-1632); IgM 22 mg/dL (35-263)
[2024-09-15] MEDS: HEPARIN 5000 UNITS SC ×2 (08:35→22:20)
[2024-09-15] MEDS: TYLENOL 1000 MG PO ×3 (08:35→22:20)
[2024-09-15] MEDS: MIRALAX 17 GRAMS PO (08:35)
[2024-09-15] MEDS: PEPCID 10 MG PO (08:36)
[2024-09-15] MEDS: NORVASC 2.5 MG PO (08:36)
[2024-09-15] MEDS: COLACE PO ×3 (08:36→20:45)
[2024-09-15 09:05] LABS: Hematocrit 29.7 % (39.0-52.0); Hemoglobin 9.7 g/dL (13.0-18.0); Mean Corp Hgb Conc. 32.7 g/dL (33.0-37.0); Mean Corpuscular Hgb 23.4 pg (27.0-31.0); Mean Corpuscular Volume 71.6 fL (80.0-94.0); Platelet Count 118 10^3/uL (130-400); Red Blood Cell Count 4.15 10^6/uL (4.70-6.10); Red Cell Dist. Width 24.2 % (11.5-14.5); White Blood Cell Count 5.6 10^3/uL (4.8-10.8)
--- NOTE | 2024-09-15 10:05 | CM ---
Addendum entered by SANDRA Mark 09/15/24 17:39:
Spoke with patient's daughter, Ruth, who stated that family is now looking into a facility named, [facility]. Main phone number is [phone], phone number for admissions, Ruth Dean, . Will call Ruth and fax
referral in the am.
Original Note:
Reviewed chart, CM spoke with patient's over w/e who really wants for patient to go to [facility]. Placed a call to their admissions [phone] and spoke with Shauna in admissions who stated that she did not receive referral through [facility] but
did confirm that they have been having some difficulties with [facility] lately. As this was the case, offer was made to fax (Manually) the referral. Shauna stated that her fax# is [phone]. Faxed over referral manually and again through
[employer]. Shauna called and stated that she still had yet to receive clinical so faxed again at number above. Will call to f/u soon to determine receipt.
Plan: Case management will continue to follow and assist with discharge planning. Hopeful acceptance into [facility] upon receiving all clinical. No auth needed.
[2024-09-15 10:08] LABS: ALT (SGPT) 14 U/L (0-50); AST (SGOT) 23 U/L (17-59); Albumin 3.4 g/dl (3.5-5.0); Alkaline Phosphatase 98 U/L (38-126); Blood Urea Nitrogen 25 mg/dl (9-20); Calcium 9.3 mg/dl (8.4-10.2); Carbon Dioxide 20 mmol/L (22-30); Chloride 111 mmol/L (98-107); Estimated Creatinine Clearance 24 ml/min; Glucose 81 mg/dl (70-99); Potassium 3.5 mmol/L (3.5-5.1); Sodium 146 mmol/L (135-145); Total Bilirubin 0.2 mg/dl (0.2-1.3); Total Protein 7.3 g/dl (6.3-8.2); eGFR 31.82
[2024-09-15 10:23] LABS: Absolute Neutrophils -Man Diff 2.6 10^3/uL (1.4-6.5); Band Neutrophils 2 % (0-3); Lymphocytes 22 % (20-51); Metamyelocytes 3 % (-); Monocytes 24 % (2-9); Myelocytes 3 % (-); Normal RBC Morphology No; Nucleated Red Blood Cells 1 (-); Platelets Checked Yes; Segmented Neutrophils 46 % (42-75)
[2024-09-15 10:24] LABS: Anisocytosis 1+; Hypochromasia 1+; Polychromasia 1+; Total Cells Counted 100
--- NOTE | 2024-09-15 13:31 | W.PN.NEPH.PH ---
Today's Communication / Plan
-
PVR
Assessment/Plan
-
Impression:
SAKINA
Bilateral nephrolithiasis
History of hypothyroidism
Multiple vertebral compression fracture
Hypercalcemia
Anemia
History of hepatocellular carcinoma status post resection
PEP +M spike IgA
Plan:
follow BMP
check PVR (CT 09/09 suggested bilateral collecting system dilatation)
encourage po fluids
will need heme evaluation
-
-
Date of Service: September 15, 2024
CC / HPI / ROS
-
Chief Complaint:
SAKINA
Hypercalcemia
History of Present Illness:
Calcium better at 9.3
SAKINA/Cr stable 2.1
Na up to 146
Hemodynamically stable
Review of Systems:
Nonoliguric
no cp or sob
Labs
-
Labs:
WBC 5.6 10^3/uL (4.8-10.8) 09/15/24 08:14
RBC 4.15 10^6/uL (4.70-6.10) L 09/15/24 08:14
Hgb 9.7 g/dL (13.0-18.0) L 09/15/24 08:14
Hct 29.7 % (39.0-52.0) L 09/15/24 08:14
Plt Count 118 10^3/uL (130-400) L 09/15/24 08:14
Sodium 146 mmol/L (135-145) H 09/15/24 08:14
Potassium 3.5 mmol/L (3.5-5.1) 09/15/24 08:14
Chloride 111 mmol/L (98-107) H 09/15/24 08:14
Carbon Dioxide 20 mmol/L (22-30) L 09/15/24 08:14
BUN 25 mg/dl (9-20) H 09/15/24 08:14
Creatinine 2.1 mg/dL (0.7-1.3) H 09/15/24 08:14
eGFR 31.82 09/15/24 08:14
Glucose 81 mg/dl (70-99) 09/15/24 08:14
Calcium 9.3 mg/dl (8.4-10.2) 09/15/24 08:14
Phosphorus 3.8 mg/dl (2.5-4.5) 09/10/24 06:27
Albumin 3.4 g/dl (3.5-5.0) L 09/15/24 08:14
Physical Exam
-
Vital Signs:
Vital Signs
Temp Pulse Resp BP Pulse Ox
98.4 F 95 18 143/85 96
09/15/24 07:07 09/15/24 08:36 09/15/24 07:07 09/15/24 08:36 09/15/24 07:07
Cardiovascular:: Regular rate and rhythm
Respiratory:: Bilateral: Coarse
Lung Excursion:: Normal
Abdomen:: Nontender and Soft
Bowel Sounds:: Normal
Extremity Edema:: None: Bilateral:
[2024-09-15 13:57] VITALS: BMI 23.6
--- NOTE | 2024-09-15 14:13 | W.PN.HOSP.TC ---
Today's Communication/Plan
-
Back off on laxatives
Hematology consult
Assessment / Plan
Assessment / Plan
Gen-AAOx3, NAD
HEENT-NC, AT, anicteric, clear oral mm
Neck-supple
CV-reg, no M, +S1/S2
Lungs-clear B/L
Abd-soft, NT, ND
Ext-no edema
Musculoskeletal-no cyanosis, clubbing
Skin-warm and dry
Neuro-grossly non-focal
Psych-calm, cooperative
SAKINA on CKD 3b -baseline creatinine suspected to be 1.4 based on recent blood work from [facility]. Reviewed records with daughter on her phone, she has access to the portal.
Etiology of SAKINA likely multifactorial including hypovolemia. Recent use of Bactrim.
Creatinine improved from 3.0 to 2.1.
Hypercalcemia -concern for paraproteinemia given monoclonal spike on SPEP/EDD. IgA type kappa monoclonal protein noted. Consult hematology.
- Significant hypercalcemia in a gentleman with multiple vertebral fractures, constipation, abdominal discomfort, recurrent / significant nephrolithiasis and intermittent confusion.
- PTH suppressed, ruling out hyperparathyroidism. PTH RP pending.
- Note that patient was previously on PTH analog for treatment of his osteoporosis - stopped in June.
- Follow-up results. Hold calcium supplementation.
- Aggressive IVFs as noted above. s/p pamidronate. now improving
Hypernatremia -sodium 146. Likely due to mild dehydration. Encourage p.o. intake.
Acute thrombocytopenia -118k today. Admission platelet count 181. Doubt HIT. Monitor for now.
Back Pain due to Multiple Vertebral Fractures -pain level improving overall. Baseline uses a walker.
- New / worsening back pain in radicular fashion.
- ? new or progressed compression fractures. no saddle anesthesia
- CT done in the ED shows significant loss of height at T12 especially.
- Efforts at pain control. PT / OT evaluations.
Nephrolithiasis
- Multiple recent episodes with significant described stone burden.
- Stone issues started after beginning PTH analog for osteoporosis / vertebral compression fractures.
- Now off of this medication.
- No new stones seen on CT scan.
- ? bladder mass lesion - which seems somewhat unlikely given multiple recent instrumentations / cystos.
- Follow-up with his [facility]rolog[facility] at [facility] after discharge as already planned.
Anemia, suspect anemia of chronic disease -iron panel noted, not consistent with iron deficiency.
Continue to monitor
Some low hemoglobin is also secondary to hemodilution
Constipation
laxatives
resolved
Hepatocellular Carcinoma
- s/p resection. No adjuvant therapies.
- Follow-up at [facility] as planned.
Hypothyroidism
- Stable. Continue current T4 supplementation.
DVT Prophylaxis: SCDs,heparin
Code Status: Full
Dispo -anticipate discharge to SNF when medically stable. Discussed with family and case management. Family would like, in a rehab unit closer to home, [facility].
Anticipated Discharge: 24 - 48 hours
Subjective/Interval History
-
Date of Service: September 15, 2024
Patient seen and examined. Daughter at the bedside. Had a rough night due to frequent stooling.
Objective Data
-
Labs:
Laboratory Results
09/15/24
08:14
WBC 5.6
Hgb 9.7 L
Hct 29.7 L
Plt Count 118 L
Sodium 146 H
Potassium 3.5
Chloride 111 H
Carbon Dioxide 20 L
BUN 25 H
Creatinine 2.1 H
Glucose 81
Calcium 9.3
Total Bilirubin 0.2
AST 23
ALT 14
Alkaline Phosphatase 98
Vital Signs:
Vital Signs
Temp Pulse Resp BP Pulse Ox
98.4 F 95 18 143/85 96
09/15/24 07:07 09/15/24 08:36 09/15/24 07:07 09/15/24 08:36 09/15/24 07:07
I&O
09/14/24 09/15/24 09/16/24
06:59 06:59 06:59
Intake Total 1620 / 1620 1040 / 1040
Output Total 1600 / 1600 900 / 900
Balance 20 / 20 140 / 140
Review of Systems
-
History Source: Patient
All other systems: Reviewed and negative
--- NOTE | 2024-09-15 15:28 | CON.ONC ---
Impression
Impression
SAKINA
Bilateral nephrolithiasis
Multiple vertebral compression fracture, osteoporosis
Hypercalcemia, low PTH, rPTH pending-resolved s/p pamidronate
Anemia, iron studies suggest component of iron deficiency with ferritin <100 and IS 16%
History of hepatocellular carcinoma status post resection
Plan
Plan
anemia with component of BERT, would avoid oral repletion with constipation, will order IV repletion
f/u [facility], consider OP bone marrow biopsy - would be helpful to have PET from [facility] to evaluate for lytic disease, reportedly no evidence, however, I do not have report to confirm
Would consider MRI spine
OP follow up with urology for further evaluation of possible bladder mass on CT
HCC f/u at [facility] as scheduled
Patient History
History of Present Illness
78yo M presented 09/10/2024 with back pain, weakness and confusion. His initial evaluation showed wbc 6.5, Hgb 8.6, platelet count 149, bun 46, creatinine 3, calcium 13.6. CT ab/pelvis w/o contrast showed a possible left sided bladder mass and
multiple lower thoracic and upper lumbar vertebral compression fractures. CT head showed no acute abnormalities. He received Aredia and NS hydration with normalization of calcium. His back pain is controlled with tylenol prn. His iron studies
suggest a component of iron deficiency with ferritin <100, IS 16%. He has no B12 or folate deficiency. His SPEP showed a Mspike 2.37 with EDD showing an IgA kappa monoclonoal protein. His serum and urine free light chains are pending. He is
moving his bowels with colace, senna, and miralax. Denies fever, chills, cough, sob, dacosta, chest pain, palpations, nausea, vomiting, dizziness, or headaches.
He had multiple rehospitalization since April 2024 and [facility], [facility] for back pain, nephrolithiasis, dehydration and treated at [facility] for HCC s/p resection.
afebrile, no hypotension or hypoxia
Past-Medical/Surgical History
PMH HCC, osteoporosis with multiple vertebral compression fractures, nephrolithiasis, hypothyroidism
Surgical history HCC resection at [facility], cysto/lithotripsy, and b/l stent placement April 2024, stents removed August 2024
Social former with exposure to agent orange. Quit smoking age 31. Denies etoh or recreational drugs. Retired,
Family denies malignancy
Patient Medication
�Medication �Instructions �Recorded �Confirmed �Last Taken �Type
acetaminophen 500 mg tablet 500 mg PO HSPRN PRN mild pain 09/09/24 09/09/24 Unknown History
(Tylenol Extra Strength)
celecoxib 200 mg capsule 200 mg PO HS Pain 09/09/24 09/09/24 09/09/24 History
cholecalciferol (vitamin D3) 50 50 mcg PO DAILY Supplement 09/09/24 09/09/24 09/09/24 History
mcg (2,000 unit) tablet (Vitamin
D3)
famotidine 20 mg tablet 20 mg PO DAILY Gastrointestinal 09/09/24 09/09/24 09/09/24 History
Issue
ferrous sulfate 137 mg (45 mg 137 mg PO DAILY Supplement 09/09/24 09/09/24 09/09/24 History
iron) tablet,extended release
levothyroxine 100 mcg tablet 100 mcg PO DAILY Thyroid 09/09/24 09/09/24 09/09/24 History
(Synthroid)
tramadol 50 mg tablet 50 mg PO DAILYPRN PRN moderate pain 09/09/24 09/09/24 1 Week Ago History
~09/02/24
Active Medications
Generic Name Dose Route Start Last Admin
Trade Name Freq PRN Reason Stop Dose Admin
Acetaminophen 1,000 mg 09/10/24 08:00 09/15/24 08:35
Acetaminophen 500 Mg Tablet PO 10/08/24 07:59 1,000 mg
TID JAYME Administration
Amlodipine Besylate 2.5 mg 09/13/24 13:00 09/15/24 08:36
Amlodipine 2.5 Mg Tablet PO 10/11/24 12:59 2.5 mg
DAILY JAYME Administration
Docusate Sodium 100 mg 09/10/24 08:00 09/15/24 08:52
Docusate Sodium 100 Mg Capsule PO 10/08/24 07:59 Not Given
BID JAYME
Famotidine 10 mg 09/11/24 08:00 09/15/24 08:36
Famotidine 20 Mg Tablet PO 10/09/24 07:59 10 mg
DAILY JAYME Administration
Heparin Sodium 5,000 units 09/12/24 20:00 09/15/24 08:35
Heparin 5,000 Units/Ml 1 Ml Vial SC 10/10/24 19:59 5,000 units
Q12 JAYME Administration
Hydralazine HCl 5 mg 09/11/24 08:52 09/11/24 09:19
Hydralazine 20 Mg/Ml Vial IV 10/09/24 08:51 5 mg
Q6HPRN PRN Administration
SBP>160
Hydromorphone HCl 0.5 mg 09/10/24 01:28 09/10/24 11:52
Hydromorphone 0.5 Mg/0.5 Ml Syringe IV 09/24/24 01:27 0.5 mg
Q4HPRN PRN Administration
Severe Pain
Levothyroxine Sodium 100 mcg 09/10/24 06:00 09/15/24 06:40
Levothyroxine 100 Mcg Tablet PO 10/08/24 05:59 100 mcg
DAILY@0600 JAYME Administration
Polyethylene Glycol 17 grams 09/15/24 14:14
Polyethylene Glycol Powder 17 Grams Packet PO 10/13/24 14:12
DAILYPRN PRN
constipation
Sennosides 17.2 mg 09/15/24 14:14
Sennosides (Senokot) 8.6 Mg Tablet PO 10/13/24 14:13
HSPRN PRN
constipation unrelieved by PEG
Sodium Chloride 0 flush 09/10/24 02:00
Sodium Chloride 0.9% (Flush) Syringe IV 10/08/24 01:59
PER PROTOCOL JAYME
Tramadol HCl 50 mg 09/10/24 03:01
Tramadol Hcl 50 Mg Tablet PO 10/08/24 03:00
[id number] PRN
moderate pain
Review of Systems
-
ROS notable for HPI, otherwise negative
Physical Exam
-
General: No Apparent Distress
HEENT: Moist Mucous Membranes; Negative Jaundice
Cardiology: S1 and S2
Pulmonary: Clear
GI: Soft
Extremities: Negative Phlebitic Signs or Edema
Skin: Warm
Hematologic / Lymphatic: No Lymphadenopathy
Labs
Lab Results
WBC 5.6 10^3/uL (4.8-10.8) 09/15/24 08:14
RBC 4.15 10^6/uL (4.70-6.10) L 09/15/24 08:14
Hgb 9.7 g/dL (13.0-18.0) L 09/15/24 08:14
Hct 29.7 % (39.0-52.0) L 09/15/24 08:14
MCV 71.6 fL (80.0-94.0) L 09/15/24 08:14
MCH 23.4 pg (27.0-31.0) L 09/15/24 08:14
MCHC 32.7 g/dL (33.0-37.0) L 09/15/24 08:14
RDW 24.2 % (11.5-14.5) H 09/15/24 08:14
Plt Count 118 10^3/uL (130-400) L 09/15/24 08:14
MPV Not Reportable 09/15/24 08:14
Abs Immat Gran (auto) 0.3 10^3/uL (0-0.05) H 09/13/24 06:30
Absolute Neuts (auto) 2.3 10^3/uL (1.4-6.5) 09/13/24 06:30
Absolute Lymphs (auto) 0.8 10^3/uL (1.2-3.4) L 09/13/24 06:30
Absolute Monos (auto) 1.6 10^3/uL (0.1-0.6) H 09/13/24 06:30
Absolute Eos (auto) 0.0 10^3/uL (0-0.7) 09/13/24 06:30
Absolute Basos (auto) 0.1 10^3/uL (0-0.2) 09/13/24 06:30
Immature Gran % 5.7 % (0-0.5) H 09/13/24 06:30
Neutrophils % 45.6 % (42.2-75.2) 09/13/24 06:30
Lymphocytes % 15.4 % (20.5-51.1) L 09/13/24 06:30
Monocytes % 31.7 % (1.7-9.3) H 09/13/24 06:30
Eosinophils % 0.4 % (0-6) 09/13/24 06:30
Basophils % 1.2 % (0-2) 09/13/24 06:30
Creatinine 2.1 mg/dL (0.7-1.3) H 09/15/24 08:14
Vital Signs
Vital Signs
Temp Pulse Resp BP Pulse Ox
98.4 F 95 18 143/85 96
09/15/24 07:07 09/15/24 08:36 09/15/24 07:07 09/15/24 08:36 09/15/24 07:07
[2024-09-15 15:42] VITALS: BP 105/62
[2024-09-15 23:35] VITALS: BP 129/63
[2024-09-16] MEDS: SYNTHROID 100 MCG PO (05:18)
[2024-09-16 05:52] LABS: PTH Related Peptide LC-MS/MS 5.7 pmol/L (0.0-2.3)
[2024-09-16 06:00] VITALS: BMI 23.6
[2024-09-16 07:16] LABS: Hematocrit 26.4 % (39.0-52.0); Hemoglobin 8.7 g/dL (13.0-18.0); Mean Corpuscular Hgb 23.5 pg (27.0-31.0); Mean Corpuscular Volume 71.4 fL (80.0-94.0); Platelet Count 117 10^3/uL (130-400); Red Cell Dist. Width 24.2 % (11.5-14.5); White Blood Cell Count 5.5 10^3/uL (4.8-10.8)
[2024-09-16 07:17] VITALS: BP 138/69
[2024-09-16 07:34] LABS: Blood Urea Nitrogen 25 mg/dl (9-20); Calcium 8.8 mg/dl (8.4-10.2); Carbon Dioxide 20 mmol/L (22-30); Chloride 108 mmol/L (98-107); Estimated Creatinine Clearance 26 ml/min; Glucose 83 mg/dl (70-99); Potassium 3.5 mmol/L (3.5-5.1); Sodium 141 mmol/L (135-145); eGFR 35.88
[2024-09-16] MEDS: NORVASC 2.5 MG PO (08:58)
[2024-09-16] MEDS: TYLENOL 1000 MG PO ×3 (08:59→21:14)
[2024-09-16] MEDS: PEPCID 10 MG PO (08:59)
[2024-09-16] MEDS: COLACE PO ×2 (09:00→21:11)
[2024-09-16] MEDS: HEPARIN 5000 UNITS SC ×2 (09:00→21:11)
--- NOTE | 2024-09-16 10:11 | W.PN.HOSP.TC ---
Today's Communication/Plan
-
Discharge planning
Assessment / Plan
Assessment / Plan
Gen-AAOx3, NAD
HEENT-NC, AT, anicteric, clear oral mm
Neck-supple
CV-reg, no M, +S1/S2
Lungs-clear B/L
Abd-soft, NT, ND
Ext-no edema
Musculoskeletal-no cyanosis, clubbing
Skin-warm and dry
Neuro-grossly non-focal
Psych-calm, cooperative
SAKINA on CKD 3b -baseline creatinine suspected to be 1.4 based on recent blood work from [facility]. Reviewed records with daughter on her phone, she has access to the portal.
Etiology of SAKINA likely multifactorial including hypovolemia. Recent use of Bactrim.
Creatinine improved.
Hypercalcemia -concern for paraproteinemia given monoclonal spike on SPEP/EDD. IgA type kappa monoclonal protein noted. Hematology consulted. Free kappa light chains pending. Will need outpatient hematology follow-up.
- Significant hypercalcemia in a gentleman with multiple vertebral fractures, constipation, abdominal discomfort, recurrent / significant nephrolithiasis and intermittent confusion.
- PTH suppressed, ruling out hyperparathyroidism. PTH RP pending.
- Note that patient was previously on PTH analog for treatment of his osteoporosis - stopped in June.
- Follow-up results. Hold calcium supplementation.
- Aggressive IVFs as noted above. s/p pamidronate. now improving
Hypernatremia -resolved.
Acute thrombocytopenia -117k today, stable. Admission platelet count 181. Doubt HIT. Monitor for now.
Back Pain due to Multiple Vertebral Fractures -pain level improving overall. Baseline uses a walker.
- New / worsening back pain in radicular fashion.
- ? new or progressed compression fractures. no saddle anesthesia
- CT done in the ED shows significant loss of height at T12 especially.
- Efforts at pain control. PT / OT evaluations.
Nephrolithiasis
- Multiple recent episodes with significant described stone burden.
- Stone issues started after beginning PTH analog for osteoporosis / vertebral compression fractures.
- Now off of this medication.
- No new stones seen on CT scan.
- ? bladder mass lesion - which seems somewhat unlikely given multiple recent instrumentations / cystos.
- Follow-up with his Urologist at [facility] after discharge as already planned.
Anemia, suspect anemia of chronic disease -iron panel noted, not consistent with iron deficiency.
Continue to monitor
Some low hemoglobin is also secondary to hemodilution
Constipation
laxatives
resolved
Hepatocellular Carcinoma
- s/p resection. No adjuvant therapies.
- Follow-up at [facility] as planned.
Hypothyroidism
- Stable. Continue current T4 supplementation.
DVT Prophylaxis: SCDs,heparin
Code Status: Full
Dispo -medically stable for discharge to SNF. Discussed with family and case management. Family would like, in a rehab unit closer to home, [facility].
Anticipated Discharge: Within 24 hours
Subjective/Interval History
-
Date of Service: September 16, 2024
Patient seen and examined. No complaints.
Objective Data
-
Labs:
Laboratory Results
09/16/24
06:31
WBC 5.5
Hgb 8.7 L
Hct 26.4 L
Plt Count 117 L
Sodium 141
Potassium 3.5
Chloride 108 H
Carbon Dioxide 20 L
BUN 25 H
Creatinine 1.9 H
Glucose 83
Calcium 8.8
Vital Signs:
Vital Signs
Temp Pulse Resp BP Pulse Ox
97.5 F 71 18 138/69 96
09/16/24 07:17 09/16/24 07:17 09/16/24 07:17 09/16/24 07:17 09/16/24 07:17
I&O
09/15/24 09/16/24 09/17/24
06:59 06:59 06:59
Intake Total 1040 / 1040 1440 / 1440
Output Total 900 / 900 1450 / 1450
Balance 140 / 140 -10 / -10
Review of Systems
-
History Source: Patient
All other systems: Reviewed and negative
--- NOTE | 2024-09-16 10:48 | CM ---
Addendum entered by Lexie Keller 09/16/24 13:18:
Multiple calls placed to [facility] today to coordinate transfer, however at the time of my last call, I was advised that admissions has received all of my messages and will call me when they can.
CM will continue to follow for transfer to [facility] pending acceptance.
Original Note:
CM following for transfer to [facility] which is near where Ori lives and preferred facility. Records faxed this AM after multiple calls to the facility to obtain fax #.
CM will follow up with [facility] to confirm receipt of referral as well acceptance for transfer.
--- NOTE | 2024-09-16 11:59 | W.PN.NEPH.PH ---
Today's Communication / Plan
-
follow BMP
Assessment/Plan
-
Impression:
SAKINA
Bilateral nephrolithiasis
History of hypothyroidism
Multiple vertebral compression fracture
Hypercalcemia
Anemia
History of hepatocellular carcinoma status post resection
PEP +M spike IgA
Plan:
follow BMP
PVR good (CT 09/09 suggested bilateral collecting system dilatation)
encourage po fluids
pt has had onco eval previously.
-
-
Date of Service: September 16, 2024
CC / HPI / ROS
-
Chief Complaint:
SAKINA
Hypercalcemia
History of Present Illness:
Calcium lower 8.8
SAKINA/Cr stable 1.9
Na better 141
Hemodynamically stable
Review of Systems:
Nonoliguric
no cp or sob
Labs
-
Labs:
WBC 5.5 10^3/uL (4.8-10.8) 09/16/24 06:31
RBC 3.70 10^6/uL (4.70-6.10) L 09/16/24 06:31
Hgb 8.7 g/dL (13.0-18.0) L 09/16/24 06:31
Hct 26.4 % (39.0-52.0) L 09/16/24 06:31
Plt Count 117 10^3/uL (130-400) L 09/16/24 06:31
Sodium 141 mmol/L (135-145) 09/16/24 06:31
Potassium 3.5 mmol/L (3.5-5.1) 09/16/24 06:31
Chloride 108 mmol/L (98-107) H 09/16/24 06:31
Carbon Dioxide 20 mmol/L (22-30) L 09/16/24 06:31
BUN 25 mg/dl (9-20) H 09/16/24 06:31
Creatinine 1.9 mg/dL (0.7-1.3) H 09/16/24 06:31
eGFR 35.88 09/16/24 06:31
Glucose 83 mg/dl (70-99) 09/16/24 06:31
Calcium 8.8 mg/dl (8.4-10.2) 09/16/24 06:31
Phosphorus 3.8 mg/dl (2.5-4.5) 09/10/24 06:27
Albumin 3.4 g/dl (3.5-5.0) L 09/15/24 08:14
Physical Exam
-
Vital Signs:
Vital Signs
Temp Pulse Resp BP Pulse Ox
97.5 F 71 18 138/69 96
09/16/24 07:17 09/16/24 07:17 09/16/24 07:17 09/16/24 07:17 09/16/24 07:17
Cardiovascular:: Regular rate and rhythm
Respiratory:: Bilateral: Coarse
Lung Excursion:: Normal
Abdomen:: Nontender and Soft
Bowel Sounds:: Normal
Extremity Edema:: None: Bilateral:
--- NOTE | 2024-09-16 14:01 | W.DS.TRANS ---
DC Summary - [employer]
-
Discharge Instructions:
Discharge Diagnosis/Procedures Acute kidney injury, hypercalcemia,
thrombocytopenia, vertebral compression
fractures
Diet Regular
Activity With assistance
Driving Restrictions No driving
Bathing Restrictions None
Blood Work CBC, BMP in 1 week
Instructions:
Stand-Alone Forms:
Changes to Home Medications: No
Discharge Medications:
DC Medications w/original date entered in [facility]
cholecalciferol (vitamin D3) 50 mcg (2,000 unit) tablet (Vitamin D3) 50 mcg PO DAILY Supplement 09/09/24
ferrous sulfate 137 mg (45 mg iron) tablet,extended release 137 mg PO DAILY Supplement 09/09/24
levothyroxine 100 mcg tablet (Synthroid) 100 mcg PO DAILY Thyroid 09/09/24
amlodipine 2.5 mg tablet 2.5 mg PO DAILY #0 tabs 09/16/24
docusate sodium 100 mg capsule 100 mg PO BID #0 caps 09/16/24
famotidine 20 mg tablet 10 mg (1/2 x 20 mg) PO DAILY #0 tabs 09/16/24
polyethylene glycol 3350 17 gram oral powder packet (HealthyLax) 17 g PO DAILYPRN PRN constipation #0 ea 09/16/24
potassium chloride 20 mEq tablet,extended release(part/cryst) 20 meq PO DAILY #0 tabs 09/16/24
sennosides 8.6 mg tablet (Senna Laxative) 17.2 mg (2 x 8.6 mg) PO HSPRN PRN constipation unrelieved by PEG #0 tabs 09/16/24
Home Medication Changes
Pending Results: No
[2024-09-16] MEDS: FERRLECIT 110 MG IV (14:06)
[2024-09-16] MEDS: KCL 20 MEQ PO (14:06)
[2024-09-16 14:13] LABS: Free Kappa Light Chains,Quant 1923.01 mg/L (3.30-19.40); Free Lambda Light Chains,Quant 11.57 mg/L (5.71-26.30); Kappa/Lambda Fr Light Ratio 166.21 (0.26-1.65)
[2024-09-16 15:01] VITALS: BP 121/76
--- NOTE | 2024-09-16 15:03 | CM ---
CM spoke with [facility] earlier today to discuss transfer. Ori is accepted for transfer and will provide transport. IV iron was just hung, so instead of leaving today, would like to wait until tomorrow, as she is not comfortable
driving in the dark. Dr. Hawkins notified of same.
Plan: Discharge to [facility] tomorrow via .
Alba report: (ask for nursing supervisor publications) [phone]
Alba
--- NOTE | 2024-09-16 16:50 | W.PN.ONC2 ---
Today's Communication / Plan
-
OP follow up at [facility] for continued management of HCC and continued evaluation for suspected plasma cell dyscrasia
Impression
Impression
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
SAKINA
Bilateral nephrolithiasis
Multiple vertebral compression fracture, osteoporosis
Hypercalcemia, low PTH, rPTH pending-resolved s/p pamidronate
Anemia, iron studies suggest component of iron deficiency with ferritin <100 and IS 16%
thrombocytopenia
History of hepatocellular carcinoma status post resection
Plan
Plan
I discussed with pt and at bedside that SPEP and FLC are concerning for plasma cell dyscrasias and that a bone marrow biopsy is recommended for diagnosis. I further reviewed that if pt does have plasma cell dyscrasias that is left untreated
could result in recurrence of hypercalcemia, worsening SAKINA, lytic disease, and worsening pancytopenia. Pt tells me that she has follow up with his medical oncologist and will pursue diagnostic bone marrow biopsy at [facility]
anemia with component of BERT, would avoid oral repletion with constipation, Continue parentaral iron while inpt
OP follow up with urology for further evaluation of possible bladder mass on CT
HCC f/u at [facility] as scheduled
>50% of visit was spent on education, counceling, and coordination of care - 25min
Subjective/Objective
Subjective
Sitting in chair no distress
and daughter at bedside during visit
Vital Signs:
Vital Signs
Temp Pulse Resp BP Pulse Ox
97.7 F 91 18 121/76 98
09/16/24 15:01 09/16/24 15:01 09/16/24 15:01 09/16/24 15:01 09/16/24 15:01
Lab Results:
Laboratory Data
WBC 5.5 10^3/uL (4.8-10.8) 09/16/24 06:31
Hgb 8.7 g/dL (13.0-18.0) L 09/16/24 06:31
Plt Count 117 10^3/uL (130-400) L 09/16/24 06:31
eGFR 35.88 09/16/24 06:31
Physical Exam
General: No Apparent Distress
HEENT: Moist Mucous Membranes; Negative Jaundice
Cardiology: S1 and S2
Pulmonary: Clear
GI: Soft
Extremities: Negative Phlebitic Signs or Edema
Skin: Warm
Hematologic / Lymphatic: No Lymphadenopathy
Orders
Orders
Orders From Last 24 Hours
09/16/24 14:00
Ferric Gluconate [Ferrlecit] 125 mg 0.9% Sodium Chloride 100 ml [Nss] 100 ml IV DAILY@1400
[2024-09-16] MEDS: TUMS CHEWABLE TABLET 200 MG PO (21:22)
[2024-09-16 23:59] VITALS: BP 153/65
[2024-09-17] MEDS: SYNTHROID 100 MCG PO (05:18)
[2024-09-17 06:00] VITALS: BMI 23.5
[2024-09-17 07:00] VITALS: BP 135/60
[2024-09-17] MEDS: TYLENOL 1000 MG PO (08:08)
[2024-09-17] MEDS: KCL 20 MEQ PO (08:09)
[2024-09-17] MEDS: COLACE 100 MG PO (08:09)
[2024-09-17] MEDS: PEPCID 10 MG PO (08:09)
[2024-09-17] MEDS: HEPARIN 5000 UNITS SC (08:09)
[2024-09-17] MEDS: NORVASC 2.5 MG PO (08:10)
== END 2024-09-17 10:30 | DRG 683 ==
LOC: 3 WEST ACU 00:49
PROVIDERS: Internal Medicine; Specialist; Student in an Organized Health Care Education/Training Program; ADMITTING PHYSICIAN Hospitalist; ATTENDING PHYSICIAN Hospitalist; CONSULT PHYSICIAN Internal Medicine Hematology & Oncology; EMERGENCY PHYSICIAN Student in an Organized Health Care Education/Training Program; OTHER PHYSICIAN Specialist
DX: N17.9 Acute kidney failure, unspecified (principal); C22.0 Liver cell carcinoma; S22.000A Wedge compression fracture of unspecified thoracic vertebra, initial encounter for closed fracture; E87.0 Hyperosmolality and hypernatremia; R62.7 Adult failure to thrive; N13.2 Hydronephrosis with renal and ureteral calculous obstruction; N18.32 Chronic kidney disease, stage 3b; K59.00 Constipation, unspecified; E83.52 Hypercalcemia; E03.9 Hypothyroidism, unspecified; M81.0 Age-related osteoporosis without current pathological fracture; D69.6 Thrombocytopenia, unspecified; Z75.1 Person awaiting admission to adequate facility elsewhere; D63.8 Anemia in other chronic diseases classified elsewhere; Z68.23 Body mass index [BMI] 23.0-23.9, adult
CPT/HCPCS: 70450; 74176; 80048; 80053; 81003; 81015; 81099; 82248; 82570; 82607; 82728; 82746; 82784; 83519; 83521; 83540; 83550; 83735; 83970; 84100; 84155; 84156; 84165; 84300; 84439; 84443; 84466; 85025; 85027; 86334; 86335; 97163; 97167; 97530; 97535; 99285; J2430; J2916